=== PATIENT | female | born 1955 | race Caucasian/White ===

== ENCOUNTER 2016-05-26 15:05 | Inpatient (IN) | payer BC ==
--- NOTE | 2016-05-26 15:21 | Emergency Department Record ---
History of Present Illness - General Chief complaint: Vomiting Stated complaint: VOMITING/CRAMPS Time Seen by Provider: 05/26/16 15:19 Source: Patient Mode of Arrival: Ambulatory Limitations: No limitations - History of Present Illness Initial comments: The patient is here due to a 23 hour hx of nausea, vomiting, and abdominal cramping. She is feeling better today but is still having intermittent cramps. There has been no fever, diarrhea but a very small stool today and she is passing a small amount of gas. The patient does have a hx of multiple abdominal surgeries and has had multiple partial SBO's before and this feels the same. She has never needed surgery for an SBO in the past and has always opened up on her own. MD complaint: Abdominal pain, Nausea, Vomiting Onset/Timin -: Days(s) Description of Vomiting: Food contents, Watery Associated Abdominal Pain: Yes Radiation: None Severity scale (1-10): 3 Quality: Cramping Consistency: Constant Improves with: None Worsens with: None Context: Sick contacts Associated Symptoms: Nausea/vomiting - Related Data Home Medications Medication Instructions Recorded Confirmed Last Taken Dicyclomine HCl 20 mg PO QID 02/12/14 05/26/16 06/03/15 Calcium Carbonate [Calcium] 600 mg PO DAILY tab 03/16/15 05/26/16 Unknown Previous Rx's Medication Instructions Recorded Omeprazole 20 mg PO DAILY #30 tab. 06/06/15 Allergies Allergy/AdvReac Type Severity Reaction Status Date / Time venom-honey bee Allergy SWELLING Verified 06/03/15 13:47 [bee venom (honey bee)] (GENERAL) Travel Screening - Travel/Exposure Within Last 30 Days Have you traveled within the last 30 days?: No Review of Systems Constitutional: Denies: Chills, Fever Eyes: Denies: Eye discharge ENT: Denies: Congestion Respiratory: Denies: Cough, Dyspnea Past Medical History - SOCIAL HISTORY Smoking Status: Former smoker - RESPIRATORY Hx Respiratory Disorders: Yes Hx COPD: Yes Hx Sleep Apnea: Yes Hx of CPAP: No - CARDIOVASCULAR Hx Cardio Disorders: Yes - NEURO Hx Neuro Disorders: Yes Comment:: 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 - GI Hx GI Disorders: Yes Hx Abdominal Pain: Yes Hx Diverticulitis: Yes Hx Nausea/Vomiting: Yes Hx Obstructive Bowel: Yes Hx Wt Loss/Wt Gain: No Comment:: constipation, bowel obstruction - Hx Genitourinary Disorders: Yes Hx UTI: Yes - ENDOCRINE Hx Endocrine Disorders: No - MUSCULOSKELETAL Hx Musculoskeletal Disorders: Yes Hx Back Injury: Yes (x2 herniated disc) Hx Musculoskeletal Disease: Yes (left knee) Hx Osteoporosis: Yes Comment:: cortisone injection > 1 month ago for hip pain - PSYCH Hx Psych Problems: No - HEMATOLOGY/ONCOLOGY Hx Hematology/Oncology Disorders: No Hx Blood Transfusions: Yes Hx Blood Transfusion Reaction: No Family Medical History Any Significant Family History?: Yes Hx Cancer: Father Hx Heart Disease: Mother Physical Exam - General General Appearance: Alert, Oriented x3, Cooperative, No acute distress - Head Head exam: Atraumatic, Normocephalic, Normal inspection - Eye Eye exam: Normal appearance, PERRL - ENT Throat exam: Normal inspection. negative: Tonsillar erythema, Tonsillar exudate - Neck Neck exam: Normal inspection, Full ROM. negative: Tenderness - Respiratory Respiratory exam: Normal lung sounds bilaterally. negative: Respiratory distress - Cardiovascular Cardiovascular Exam: Regular rate, Normal rhythm, Normal heart sounds - GI/Abdominal GI/Abdominal exam: Soft, Tenderness (There is mild upper abdominal tenderness.) . negative: Distended, Rebound, Rigid - Extremities Extremities exam: Normal inspection, Full ROM, Normal capillary refill. negative: Tenderness - Back Back exam: Reports: Normal inspection, Full ROM. Denies: Muscle spasm, Rash noted, Tenderness Course Vital Signs 05/26/16 15:10 Temperature 97.3 F L Pulse Rate 90 Respiratory 20 Rate Blood Pressure 148/90 Pulse Ox 99 - Reevaluation(s) Reevaluation #1: The patient is doing better but is still having some pain and nausea. I did discuss the CT results with the patient and the need for admission and she agrees with the plan. I then did discuss the case with Dr. Camarillo and he accepts the admission. 05/26/16 16:46 Reevaluation #2: The patient is doing much better presently. She denies any significant pain and has a very soft abdomen. She is feeling much better and resting comfortably. 05/26/16 17:00 Medical Decision Making - Data Complexity MDM Data: Labs Ordered and/or Reviewed, X-Ray Ordered and/or Reviewed - Lab Data Result diagrams: 05/26/16 15:55 05/26/16 15:55 - Radiology Data Radiology results: Report reviewed (CT: Partial SBO with no perforation or pneumatosis) Disposition Disposition: Admit Clinical Impression: Small bowel obstruction Disposition: Still a Patient at [facility] Decision to Admit: Admit from ER Decision to Admit Date: 05/26/16 Decision to Admit Time: 16:48 Accepting Physician: Rabia Time Discussed w/Accepting Physician: 16:48 Condition: (1) Good Time of Disposition: 16:48
[2016-05-26] MEDS ORDERED: ONDANSETRON HCL IV 4 MG/2 ML VIAL IV ONE (15:27)
[2016-05-26] MEDS ORDERED: 0.9 % SODIUM CHLORIDE 1,000 ML BAG IV ONE (15:27)
[2016-05-26 16:07] LABS: BASO % 0.3 % (0-6); EOS % 1.3 % (0-6); GRAN % 68.3 % (47-80); HEMATOCRIT 44.2 % (35.0-47.0); HEMOGLOBIN 13.9 gm/dl (11.6-16.0); LYMPH % 20.4 % (16-45); MEAN CELL VOLUME 92.5 fl (81-97); MEAN CORPUSCULAR HEMOGLOBIN 29.1 pg (27-33); MEAN CORPUSCULAR HGB CONC 31.4 g/dl (32-36); MEAN PLATELET VOLUME 9.8 fl (7.4-10.4); MONO % 9.7 % (0-9); PLATELET COUNT 342 K/uL (130-400); RED BLOOD COUNT 4.78 M/uL (3.80-5.40); RED CELL DISTRIBUTION WIDTH 13.8 % (11.5-14.5); WHITE BLOOD COUNT W/O DIFF 6.7 K/uL (4.2-12.2)
[2016-05-26 16:16] LABS: ALBUMIN 4.3 gm/dL (3.5-5.0); ALKALINE PHOSPHATASE 96 U/L (38-126); ALT/SGPT 33 U/L (9-52); AMYLASE 37 U/L (30-110); ANION GAP 10.7 (7-16); AST/SGOT 27 U/L (14-36); BILIRUBIN,TOTAL 0.79 mg/dL (0.2-1.3); BLOOD UREA NITROGEN 22 mg/dL (7-17); CARBON DIOXIDE 30.3 mmol/L (22-30); CREATININE 0.8 mg/dL (0.52-1.04); EST GLOMERULAR FILTRATION RATE > 60 ml/min; GLUCOSE,RANDOM 86 mg/dL (70-110); TOTAL PROTEIN 7.3 gm/dL (6.3-8.2)
[2016-05-26] MEDS ORDERED: HYDROMORPHONE HCL 1 MG/ML CPJ IVP ONE (16:44)
[2016-05-26] MEDS ORDERED: 0.9 % SODIUM CHLORIDE 1000ML 1,000 ML IV PRN (17:40)
[2016-05-26] MEDS ORDERED: ONDANSETRON HCL IV 4 MG/2 ML VIAL IVP PRN (17:40)
[2016-05-26 19:29] LABS: LIPASE 23 U/L (23-300)
[2016-05-26] MEDS: PANTOPRAZOLE SODIUM IV 40 MG VIAL IVP SCH (19:47)
[2016-05-26] MEDS: HYDROMORPHONE HCL 1 MG/ML CPJ IVP PRN (22:11)
[2016-05-27 06:49] LABS: BASO % 0.4 % (0-6); EOS % 2.8 % (0-6); HEMATOCRIT 39.6 % (35.0-47.0); HEMOGLOBIN 12.2 gm/dl (11.6-16.0); LYMPH % 26.3 % (16-45); MEAN CELL VOLUME 94.5 fl (81-97); MEAN CORPUSCULAR HEMOGLOBIN 29.1 pg (27-33); MEAN CORPUSCULAR HGB CONC 30.8 g/dl (32-36); MEAN PLATELET VOLUME 10.1 fl (7.4-10.4); MONO % 9.5 % (0-9); PLATELET COUNT 293 K/uL (130-400); RED BLOOD COUNT 4.19 M/uL (3.80-5.40); RED CELL DISTRIBUTION WIDTH 13.5 % (11.5-14.5); WHITE BLOOD COUNT W/O DIFF 5.4 K/uL (4.2-12.2)
[2016-05-27 07:28] LABS: BLOOD UREA NITROGEN 18 mg/dL (7-17); CREATININE 0.6 mg/dL (0.52-1.04); EST GLOMERULAR FILTRATION RATE > 60 ml/min; GLUCOSE,RANDOM 63 mg/dL (70-110)
[2016-05-27 07:29] LABS: ANION GAP 9.4 (7-16); CARBON DIOXIDE 24.6 mmol/L (22-30)
--- NOTE | 2016-05-27 08:20 | CT SCAN REPORT ---
EXAM: CT OF THE ABDOMEN AND PELVIS WITHOUT CONTRAST HISTORY: VOMITING SINCE 5:00 P.M. YESTERDAY. TECHNIQUE: Helical CT examination of the abdomen and pelvis was performed without oral or intravenous contrast administration. Lack of oral and IV contrast utilization limits evaluation of the bowel and solid viscera respectively. Comparison: CT of the abdomen and pelvis without contrast dated 06/03/15. FINDINGS: Minimal linear scarring versus atelectasis in each lung base. On the first image obtained there is a possible 3 mm nodule in the posterior left lung base. This was not included on prior examinations. The visualized lung bases are otherwise clear. No pleural or pericardial effusion is seen. A small hiatal hernia is present. The heart is not grossly enlarged. Lack of IV contrast utilization limits evaluation of the solid viscera and bowel wall. No new suspicious focal abnormality is demonstrated within the liver, spleen, pancreas, adrenal glands, nor kidneys. The gallbladder is surgically absent. No gross biliary ductal dilatation is seen. There is mild atherosclerosis without aneurysmal dilatation of the abdominal aorta nor iliac arteries. No intraabdominal nor retroperitoneal lymphadenopathy is seen. No new pelvic mass, lymphadenopathy, or free pelvic fluid is demonstrated. There is diffuse colonic diverticulosis without evidence of diverticulitis. A rectosigmoid anastomosis is visualized. There are several loops of mildly dilated proximal to mid small bowel with sharp zone of transition demonstrated in the midline mid to lower abdominal cavity. There are associated air fluid levels without gross wall thickening nor pneumatosis intestinalis. This finding is consistent with proximal to mid small bowel obstruction. No free intraperitoneal air. No new lytic or blastic bone lesion. IMPRESSION: 1. FINDINGS CONSISTENT WITH MID SMALL BOWEL OBSTRUCTION WITH SHARP ZONE TRANSITION IN THE MIDLINE MID TO LOWER ABDOMINAL CAVITY. NO ASSOCIATED WALL THICKENING, PNEUMATOSIS INTESTINALIS, NOR FREE INTRAPERITONEAL AIR. 2. STATUS POST CHOLECYSTECTOMY. 3. RECTOSIGMOID ANASTOMOSIS REDEMONSTRATED APPEARING UNCOMPLICATED. COLONIC DIVERTICULOSIS WITHOUT EVIDENCE OF DIVERTICULITIS. 4. SMALL HIATAL HERNIA. 5. POSSIBLE 3 MM NODULE IN THE POSTERIOR LEFT LUNG BASE DEMONSTRATED ON THE VERY FIRST IMAGE OBTAINED. FURTHER EVALUATION WITH FOLLOW-UP CT CHEST EXAMINATION MAY BE OF BENEFIT. JOB NUMBER: [id number] [facility]
[2016-05-27] MEDS: ENOXAPARIN 40 MG/0.4 ML SYR SQ SCH (09:14)
[2016-05-27] MEDS: HYDROMORPHONE HCL 1 MG/ML CPJ IVP PRN (12:33)
[2016-05-27] MEDS: PANTOPRAZOLE SODIUM IV 40 MG VIAL IVP SCH (17:22)
[2016-05-28] MEDS: ENOXAPARIN 40 MG/0.4 ML SYR SQ SCH (09:25)
--- NOTE | 2016-05-28 10:03 | Discharge Note ---
VTE H&P Assessment - Risk for VTE Risk for VTE: Yes Risk Level: Moderate Risk Assessment Date: 05/26/16 Risk Assessment Time: 06:00 VTE Orders Placed or Will Be Placed: Yes VTE Reason for No Prophylaxis: Not Indicated Discharge Medications - Discharge Medications Prescriptions: Hydrocodone/Acetaminophen [[place] 5mg/325mg] 1 tab PO Q6H PRN #10 tab PRN Reason: Pain - General Home Medications: Ambulatory Orders Dicyclomine HCl 20 mg PO QID 02/12/14 [Last Taken 06/03/15] Calcium Carbonate [Calcium] 600 mg PO DAILY tab 03/16/15 [Last Taken Unknown] Omeprazole 20 mg PO DAILY #30 tab.dr 06/06/15 [Last Taken Unknown] Hydrocodone/Acetaminophen [[place] 5mg/325mg] 1 tab PO Q6H PRN #10 tab 05/28/16 [ Last Taken Unknown] Discharge Note - Date Date of Discharge Note: 05/28/16 Condition: (1) Good Additional Instructions: follow up with Dr. Camarillo on thursdayjune 02 in the AM please set up an appointment with office bland diet Prescriptions: Hydrocodone/Acetaminophen [[place] 5mg/325mg] 1 tab PO Q6H PRN #10 tab PRN Reason: Pain - General Referrals: Ryan Camarillo D.O. [Primary Care Provider] - Forms: Patient Portal Access
--- NOTE | 2016-05-28 10:10 | History and Physical Report ---
DATE OF EVALUATION: 05/27/2016 DATE OF ADMISSION: 05/26/2016 CHIEF COMPLAINT: Abdominal pain. HISTORY OF THE PRESENT ILLNESS: This 60-year-old female presented to the ER with 23 hours of nausea, vomiting, and abdominal cramping. She had no fever or diarrhea. She had a very small bowel movement today. She passed a small amount of gas. The patient has a history of multiple abdominal surgeries with multiple partial bowel SBOs before, and at this time, feels the same as when she had a small-bowel obstruction before. She has never needed surgery for the SBO in the past and has always opened up on her own. The pain is located in the epigastric area of the abdomen. She had a colon resection by Dr. Wick in 2011 for diverticulitis, cholecystectomy, tubal repair due to adhesions, tonsillectomy, and a fissure of the rectum repaired. PAST MEDICAL HISTORY: Encephalitis x2 at 8 years of age and 31 years of age. She has a history of heart murmur, chronic obstructive pulmonary disease. She stopped smoking in 1979. She has osteoarthritis of her hips. PAST SURGICAL HISTORY: Tonsillectomy. Bowel resection due to diverticulitis in 2011. Cholecystectomy. Fissure repair and tubal repair due to adhesions. MEDICATIONS ON ADMISSION: She takes calcium with vitamin D 600 mg 1 daily, omeprazole 20 mg daily, Bentyl 20 mg q.i.d. p.r.n. She also uses Advair 250/50 one puff b.i.d., albuterol 2 puffs every 4 hours p.r.n., and lactobacillus 1 p.r.n. MiraLAX p.r.n. constipation. ALLERGIES: Venom in honey and bees. FAMILY PSYCHOSOCIAL HISTORY: Quit smoking in 1979. Former smoker. No alcohol or drug use. FAMILY HISTORY: Father had cancer and mother had heart disease. REVIEW OF SYSTEMS: HEENT: No upper respiratory infection symptoms, cough, cold, or congestion. Cardiovascular: No chest pain, palpitations, or arrhythmias. Respiratory: No shortness of breath, cough, cold or congestion. Gastrointestinal: See Chief Complaint. She had nausea, vomiting, and abdominal pain. She had no blood in her vomit or blood in stool. She did have a small stool yesterday. Genitourinary: No dysuria, hematuria, frequency, or burning on urination. Musculoskeletal: Some diffuse arthritis, but able to move her arms and legs without any problems. Neurologic: No CVA, paralysis, or paresthesias. Gynecologic: No new lumps in breasts or abdominal vaginal bleeding. Endocrine: No diabetes or thyroid disease. Integument: No rash, ulcers, changes in moles, or yellow skin. PHYSICAL EXAMINATION: VITAL SIGNS: Height is 5'4". Weight is 164 pounds. Temperature was 97.7. Pulse was 96. Blood pressure 136/74. Respiratory rate is 16. Pulse ox is 93% on room air. HEENT: Pupils equal, round, and reactive to light and accommodation. Extraocular muscles intact. Throat is clear. Nose is clear. Tympanic membranes yuen. NECK: Supple. No jugular venous distention. No hepatojugular reflux. No carotid bruits. Thyroid is smooth. CARDIOVASCULAR: Regular rate and rhythm without murmurs, clicks, rubs, or gallops. RESPIRATORY: Clear to auscultation and percussion. ABDOMEN: Tender in the epigastric area on palpation. No rebound or rigidity. Bowel sounds are hypoactive. EXTREMITIES: No pitting edema. No cyanosis or clubbing. Full range of motion. Peripheral pulses good. BREASTS: Deferred. GYNECOLOGIC: Deferred. RECTAL: Deferred. NEUROLOGIC: Cranial nerves II-XII intact. No gross deficits. Sensation normal. Strength normal. Deep tendon reflexes equal bilaterally. Babinski is negative. MENTAL STATUS: Alert and oriented x3. IMPRESSION: 1. Partial small-bowel obstruction. 2. Abdominal pain. 3. Vomiting. PLAN: IV fluids. Cautiously start her diet back up with clear liquids and further evaluation. Pain control as needed. DO RAFI Haines
== END 2016-05-28 13:05 | disposition home or self-care (01) | DRG 390 ==
LOC: ER 15:05 → MEDSURG 17:16
PROVIDERS: ADMIT Emergency Medicine; ATTEND Emergency Medicine
DX: K56.69 Other intestinal obstruction (principal); R11.10 Vomiting, unspecified; J44.9 Chronic obstructive pulmonary disease, unspecified
CPT/HCPCS: 74176; 80048; 80076; 82150; 83690; 85025; 96361; 96374; 96375; 99223; 99239; 99285; C9113; J1170; J1650; J2405; J7030

== ENCOUNTER 2016-06-23 21:50 | Inpatient (IN) | payer BC ==
[2016-06-23 22:01] LABS: URINE APPEARANCE CLEAR; URINE BILIRUBIN SMALL (NEGATIVE); URINE BLOOD TRACE-I (NEGATIVE); URINE COLOR YELLOW; URINE GLUCOSE (UA) NEGATIVE (NEGATIVE); URINE KETONE 15 mg/dL (NEGATIVE); URINE LEUKOCYTE ESTERASE TRACE (NEGATIVE); URINE NITRITE POSITIVE (NEGATIVE); URINE PROTEIN TRACE (NEGATIVE); URINE UROBILINOGEN 0.2 E.U./dL (0.20 - 1.00)
--- NOTE | 2016-06-23 22:08 | Emergency Department Record ---
History of Present Illness - General Chief Complaint: Abdominal Pain Stated Complaint: ABD PAIN Time Seen by Provider: 06/23/16 22:06 Source: Patient Mode of Arrival: Ambulatory Limitations: No limitations - History of Present Illness Initial Comments: The patient is here due to a 2 day hx of upper AP. The pain is sharp and crampy. She has had nausea with vomiting but no diarrhea and she did have a small BM earlier today. The patient has a hx of partial SBO's just like this and was just in the hospital a month ago for the same thing. MD Complaint: Abdominal pain Onset/Timin -: Days(s) Location: LUQ, RUQ Radiation: None Quality: Cramping Consistency: Constant Improves With: Bowel movement, Vomiting Worsens With: Nothing Associated Symptoms: Nausea, Vomiting - Related Data Hx Age of Menopause: 42 Home Medications Medication Instructions Recorded Confirmed Last Taken Dicyclomine HCl 20 mg PO QID 02/12/14 06/23/16 06/22/16 Calcium Carbonate [Calcium] 600 mg PO DAILY tab 03/16/15 06/23/16 06/22/16 Albuterol Sulfate [Proair Hfa] 1 - 2 inh IH Q6HR PRN 06/23/16 06/23/16 Unknown Cholecalciferol (Vitamin D3) 5,000 unit PO DAILY 06/23/16 06/23/16 06/23/16 [Vitamin D3] Tiotropium [place] [Spiriva] 1 inh IH DAILY 06/23/16 06/23/16 06/23/16 Previous Rx's Medication Instructions Recorded Omeprazole 20 mg PO DAILY #30 tab. 06/06/15 Hydrocodone/Acetaminophen [[place] 1 tab PO Q6H PRN #10 tab 05/28/16 5mg/325mg] Allergies Allergy/AdvReac Type Severity Reaction Status Date / Time venom-honey bee Allergy SWELLING Verified 06/03/15 13:47 [bee venom (honey bee)] (GENERAL) Travel Screening - Travel/Exposure Within Last 30 Days Have you traveled within the last 30 days?: No - Travel Symptoms Symptom Screening: None Review of Systems Constitutional: Denies: Chills, Fever Eyes: Denies: Eye discharge ENT: Denies: Congestion Respiratory: Denies: Cough, Dyspnea Cardiovascular: Denies: Arrhythmia, Chest pain Endocrine: Denies: Fatigue Gastrointestinal: Reports: Abdominal pain, Nausea, Vomiting. 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 - GI Hx GI Disorders: Yes Hx Abdominal Pain: Yes Hx Diverticulitis: Yes Hx Nausea/Vomiting: Yes Hx Obstructive Bowel: Yes Hx Wt Loss/Wt Gain: No Comment:: constipation, bowel obstruction - Hx Genitourinary Disorders: Yes Hx UTI: Yes - ENDOCRINE Hx Endocrine Disorders: No - MUSCULOSKELETAL Hx Musculoskeletal Disorders: Yes Hx Back Injury: Yes (x2 herniated disc) Hx Musculoskeletal Disease: Yes (left knee) Hx Osteoporosis: Yes Comment:: cortisone injection > 1 month ago for hip pain - PSYCH Hx Psych Problems: No - HEMATOLOGY/ONCOLOGY Hx Hematology/Oncology Disorders: No Hx Blood Transfusions: Yes Hx Blood Transfusion Reaction: No Family Medical History Any Significant Family History?: Yes Hx Cancer: Father Hx Heart Disease: Mother Physical Exam - General General Appearance: Alert, Oriented x3, Cooperative, No acute distress - Head Head exam: Atraumatic, Normocephalic, Normal inspection - Eye Eye exam: Normal appearance, PERRL - ENT ENT exam: Normal exam, Mucous membranes moist, Normal external ear exam, Normal orophraynx Throat exam: Normal inspection. negative: Tonsillar erythema, Tonsillar exudate - Neck Neck exam: Normal inspection, Full ROM. negative: Tenderness - Respiratory Respiratory exam: Normal lung sounds bilaterally. negative: Respiratory distress - Cardiovascular Cardiovascular Exam: Regular rate, Normal rhythm, Normal heart sounds - GI/Abdominal GI/Abdominal exam: Soft, Tenderness (There is diffuse tenderness in all 4 quads. ). negative: Rebound, Rigid - Extremities Extremities exam: Normal inspection, Full ROM, Normal capillary refill. negative: Tenderness - Back Back exam: Reports: Normal inspection - Neurological Neurological exam: Alert, Normal gait. negative: Abnormal gait, Motor sensory deficit - Psychiatric Psychiatric exam: negative: Anxious, Depressed - Skin Skin exam: negative: Rash Course Vital Signs 06/23/16 21:56 Temperature 97.6 F Pulse Rate [ 101 H Pulse Ox Probe] Respiratory 28 H Rate Blood Pressure 130/74 [Left Arm] Pulse Ox 95 - Reevaluation(s) Reevaluation #1: The patient is doing well. She is feeling better with the pain medicines. I did discuss the issues with the SBO with her and the need for admission. 06/23/16 23:35 Medical Decision Making - Data Complexity MDM Data: Labs Ordered and/or Reviewed, X-Ray Ordered and/or Reviewed - Lab Data Result diagrams: 06/23/16 22:38 06/23/16 22:38 Lab Results 06/23/16 Range/Units 22:00 Urine Color Yellow Urine Appearance Clear Urine pH 5.5 (5.0-8.0) Ur Specific [place] >= 1.030 (1.002-1.030) Urine Protein Trace H (NEGATIVE) Urine Glucose (UA) Negative (NEGATIVE) Urine Ketones 15 mg/dl H (NEGATIVE) Urine Blood Trace-i (NEGATIVE) Urine Nitrite Positive H (NEGATIVE) Urine Bilirubin Small H (NEGATIVE) Urine Urobilinogen 0.2 (0.20 - 1.00) E.U./dL Ur Leukocyte Esterase Trace H (NEGATIVE) - Radiology Data Radiology results: Report reviewed (CT: Mid SBO with transition point in the anterior central low abdomen.) Disposition Disposition: Admit Clinical Impression: Small bowel obstruction Disposition: Still a Patient at [facility] Decision to Admit: Admit from ER Decision to Admit Date: 06/23/16 Decision to Admit Time: 23:36 Accepting Physician: Rabia Time Discussed w/Accepting Physician: 23:36 Condition: (2) Stable Forms: Patient Portal Access Time of Disposition: 23:36
[2016-06-23 22:10] LABS: URINE BACTERIA FEW; URINE EPITHELIAL CELLS 0 - 2 (FEW); URINE RBC 0 - 2 (NONE SEEN)
[2016-06-23] MEDS ORDERED: 0.9 % SODIUM CHLORIDE 1,000 ML BAG IV ONE (22:12)
[2016-06-23] MEDS ORDERED: ONDANSETRON HCL IV 4 MG/2 ML VIAL IV ONE (22:12)
[2016-06-23] MEDS ORDERED: HYDROMORPHONE HCL 1 MG/ML CPJ IM ONE (22:12)
[2016-06-23] MEDS ORDERED: HYDROMORPHONE HCL 1 MG/ML CPJ IVP ONE (22:41)
[2016-06-23 22:45] LABS: BASO % 0.2 % (0-6); EOS % 1.1 % (0-6); GRAN % 78.4 % (47-80); HEMATOCRIT 43.1 % (35.0-47.0); HEMOGLOBIN 13.6 gm/dl (11.6-16.0); LYMPH % 12.9 % (16-45); MEAN CELL VOLUME 91.7 fl (81-97); MEAN CORPUSCULAR HEMOGLOBIN 28.9 pg (27-33); MEAN CORPUSCULAR HGB CONC 31.6 g/dl (32-36); MEAN PLATELET VOLUME 10.2 fl (7.4-10.4); MONO % 7.4 % (0-9); PLATELET COUNT 269 K/uL (130-400); RED CELL DISTRIBUTION WIDTH 13.7 % (11.5-14.5); WHITE BLOOD COUNT W/O DIFF 9.2 K/uL (4.2-12.2)
[2016-06-23 22:56] LABS: ALBUMIN 4.7 gm/dL (3.5-5.0); ALKALINE PHOSPHATASE 87 U/L (38-126); ALT/SGPT 30 U/L (9-52); ANION GAP 14.1 (7-16); AST/SGOT 21 U/L (14-36); BLOOD UREA NITROGEN 21 mg/dL (7-17); CARBON DIOXIDE 25.9 mmol/L (22-30); CREATININE 0.7 mg/dL (0.52-1.04); EST GLOMERULAR FILTRATION RATE > 60 ml/min; GLUCOSE,RANDOM 104 mg/dL (70-110); LIPASE 40 U/L (23-300); TOTAL PROTEIN 7.5 gm/dL (6.3-8.2)
[2016-06-23] MEDS ORDERED: 0.9 % SODIUM CHLORIDE 1000ML 1,000 ML IV PRN (23:37)
[2016-06-23] MEDS ORDERED: ONDANSETRON HCL IV 4 MG/2 ML VIAL IVP PRN (23:37)
[2016-06-23] MEDS ORDERED: HYDROMORPHONE HCL 1 MG/ML CPJ IVP PRN (23:37)
[2016-06-23] MEDS ORDERED: ALBUTEROL HFA 8 GM INHALER INH PRN ×2 (23:39→23:53)
[2016-06-24] MEDS: HYDROMORPHONE HCL 1 MG/ML CPJ IVP PRN ×3 (04:33→18:38)
[2016-06-24] MEDS: TIOTROPIUM BROMIDE 5 CAPSULES INH SCH (07:14)
--- NOTE | 2016-06-24 09:52 | CT SCAN REPORT ---
EXAM: ABDOMEN AND PELVIS CT WITHOUT CONTRAST HISTORY: TWO DAYS RIGHT UPPER QUADRANT AND LEFT UPPER QUADRANT ABDOMINAL PAIN. TECHNIQUE: Contiguous axial images from the lung bases to the symphysis pubis were obtained without IV contrast. Comparison: Abdomen and pelvis CT 06/03/15. FINDINGS: The lung bases are clear. Evaluation of the solid abdominal visceral organs is compromised due to lack of IV contrast. The liver is not enlarged. Tiny 3 mm cyst at the hepatic dome anteriorly. The spleen is homogeneous. The kidneys reveal no calculi, hydronephrosis or contour deforming mass. Thickening at lateral limb left adrenal gland likely due to hyperplasia, unchanged. Normal right adrenal gland. The pancreas is normal. The gallbladder is absent. There is dilated jejunum in the left upper quadrant and left lower quadrant containing fluid and measuring up to 4.4 cm in diameter. Transition point best seen on coronal images 46 through 50 in the left mid abdomen. No associated mass. The appendix is not seen although there are no pericecal inflammatory changes. Moderate fecal material throughout the colon with moderate colonic diverticulosis. No diverticulitis. Suture material at the rectum. Mild aortic calcification. No free intraperitoneal fluid or adenopathy. The osseous structures reveal no lytic or blastic lesion. IMPRESSION: 1. LITTLE CHANGE FROM PRIOR STUDY. PARTIAL SMALL BOWEL OBSTRUCTION WITH TRANSITION POINT LEFT MID ABDOMEN. NO ASSOCIATED MASS. 2. MODERATE COLONIC DIVERTICULOSIS WITH NO DIVERTICULITIS. 3. OTHER INCIDENTAL FINDINGS ABOVE. JOB NUMBER: [id number] MTDD
[2016-06-24] MEDS ORDERED: PANTOPRAZOLE SODIUM IV 40 MG VIAL IV SCH (10:00)
[2016-06-24] MEDS: ONDANSETRON HCL IV 4 MG/2 ML VIAL IVP PRN (10:05)
[2016-06-24] MEDS: PANTOPRAZOLE SODIUM IV 40 MG VIAL IV SCH (10:11)
[2016-06-24] MEDS: 0.9 % SODIUM CHLORIDE 1000ML 1,000 ML IV PRN ×2 (11:38→22:08)
[2016-06-24] MEDS: ENOXAPARIN 40 MG/0.4 ML SYR SQ SCH (14:09)
[2016-06-25] MEDS: HYDROMORPHONE HCL 1 MG/ML CPJ IVP PRN ×3 (00:43→16:06)
[2016-06-25] MEDS: TIOTROPIUM BROMIDE 5 CAPSULES INH SCH (06:09)
[2016-06-25] MEDS: ONDANSETRON HCL IV 4 MG/2 ML VIAL IVP PRN (07:30)
[2016-06-25] MEDS ORDERED: AL HYDROX/MAG HYDROX 30ML UD PO PRN (07:35)
--- NOTE | 2016-06-25 07:46 | RADIOLOGY REPORT ---
EXAM: ACUTE ABDOMEN SERIES HISTORY: PARTIAL SMALL BOWEL OBSTRUCTION, UPPER ABDOMINAL PAIN. TECHNIQUE: Frontal view of the chest and two views of the abdomen were obtained. Comparison: Abdominal series 03/07/14. Abdomen CT 06/23/16. FINDINGS: The lungs are clear. The cardiac silhouette, diaphragm, and osseous structures are unremarkable. No free air. Small amount of gas throughout nondistended small and large bowel. Abundant fecal material in the distal half of the colon and rectum. No suspicious calcification. IMPRESSION: 1. NEGATIVE CHEST EXAMINATION. 2. NONOBSTRUCTED BOWEL GAS PATTERN WITH NO FREE AIR. 3. CONSTIPATION. JOB NUMBER: [id number] MTDD
[2016-06-25] MEDS: ENOXAPARIN 40 MG/0.4 ML SYR SQ SCH (09:35)
[2016-06-25] MEDS: PANTOPRAZOLE SODIUM IV 40 MG VIAL IV SCH (09:35)
[2016-06-25] MEDS: 0.9 % SODIUM CHLORIDE 1000ML 1,000 ML IV PRN (09:38)
--- NOTE | 2016-06-25 09:50 | History and Physical Report ---
DATE OF ADMISSION: 06/24/2016 at 12:51 p.m. CHIEF COMPLAINT: Abdominal pain. HISTORY OF CHIEF COMPLAINT: This 60-year-old female presented to the Emergency Department with 2 days of epigastric abdominal pain, sharp and crampy. She has nausea and vomiting. She had vomiting 1 time Thursday night, dry heaves after that. She had 1 small stool on Thursday. She came in the hospital yesterday on Thursday through the Emergency Department, seen by Dr. Schafer, admitted to the hospital for partial small bowel obstruction. The patient had surgery by Dr. Wick for colon resection in 2011 for diverticulitis and she has had about 8 hospitalizations since that time for the same problem. She also had a fissure of rectum repaired somewhere along the line. 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 She has a history of heart murmur, COPD. She stopped smoking in 1979. She has osteoarthritis of the hips. SURGICAL HISTORY: Tonsillectomy, bowel resection due to diverticulitis in 2011, cholecystectomy, and fissure repair, tubal repair due to adhesions. CURRENT MEDICATIONS: 1. Spiriva 1 inhalation daily. 2. Vitamin D 5000 units daily. 3. ProAir. 4. Albuterol 1-2 puffs q.6 hours p.r.n. 5. Omeprazole 20 mg daily. 6. Bentyl 20 mg q.i.d. 7. Calcium with vitamin D 600 mg daily. ALLERGIES: Venom and honey bee/honey allergy. SOCIAL HISTORY: She quit smoking in 1979, former smoker. No alcohol or drug use. FAMILY HISTORY: Her father had cancer. Mother had heart disease. SYSTEMS REVIEW: HEENT: No upper respiratory infection symptoms, cough, cold or congestion. Cardiovascular: No chest pain, palpitation, arrhythmia. Respiratory: No shortness of breath, cough, cold or congestion. Gastrointestinal: See chief complaint. She has nausea, vomiting and abdominal pain. She has no blood in her vomit or blood in the stool that she saw on Thursday, the day of admission. She did have a small stool at that time. Musculoskeletal: Some diffuse arthritis but able to move her arms and legs without problems. Neurologic: No CVA, paralysis or paresthesias. Gynecologic. No new lumps in her breast or abnormal vaginal bleeding. Endocrine: No diabetes or thyroid disease. Integument: No rash, ulcer changes or yellow skin. PHYSICAL EXAMINATION: VITAL SIGNS: Height is 5 feet 4 inches. Weight is 162 pounds. Temperature is 97.7. Pulse is 75. Blood pressure 113/63. Respiratory rate is 16. Pulse ox is 96% on room air. HEENT: Pupils are equal, round and reactive to light and accommodation. Extraocular muscles are intact. Throat is clear. Nose is clear. Tympanic membranes are yuen. NECK: Supple, no jugular venous distention, no hepatojugular reflux, no carotid bruits. Thyroid is smooth. LUNGS: Clear to auscultation and percussion. HEART: Regular rate and rhythm without murmurs, clicks, rubs, or gallops. ABDOMEN: Tender in the epigastric area and in the upper abdomen, left and right. No rebound or rigidity. Bowel sounds are hypoactive. EXTREMITIES: No pitting edema, no cyanosis, no clubbing. Full range of motion. Peripheral pulses are good. No pain in her legs on palpation of the legs. BREASTS, GYNECOLOGICAL AND RECTAL: Deferred. NEUROLOGIC: Cranial nerves II-XII intact. No gross decreased sensation or arm strength. Normal deep tendon reflexes, equal bilaterally. Babinski is negative. MENTAL STATUS: Alert and oriented x 3. IMPRESSION: 1. Partial small bowel obstruction. 2. Abdominal pain. 3. Vomiting. PLAN: IV fluids, cautious. She will restart her diet as she can start to tolerate clear liquids, and further evaluation and pain control as needed. INPATIENT CERTIFICATION: Admit to inpatient care. Based on my medical assessment after consideration of his risk factors, age, comorbidities, patient' s present symptoms in Acute, I expect that this patient will remain in the hospital greater than or equal to 2 midnights on the service and he will warrant inpatient care because of a partial small bowel obstruction. ESTIMATED LENGTH OF CARE: Three days. The patient may reasonably be expected to be discharged or transferred to a hospital within 96 hours after admission to [facility]. SERVICES NEEDED: IV fluid, pain control, and further evaluation. I certify that my determination is in accordance with my understanding of Medicare requirements for reasonable and necessary inpatient services. RAFI
[2016-06-25] MEDS ORDERED: DICYCLOMINE HCL 10 MG CAPSULE PO PRN (16:13)
[2016-06-25] MEDS ORDERED: ACETAMINOPHEN 325 MG TAB PO PRN (16:13)
--- NOTE | 2016-06-25 17:31 | Discharge Note ---
VTE H&P Assessment - Risk for VTE Risk for VTE: Yes Risk Level: Moderate Risk Assessment Date: 06/24/16 Risk Assessment Time: 09:00 VTE Orders Placed or Will Be Placed: Yes Discharge Medications - Discharge Medications Home Medications: Ambulatory Orders Dicyclomine HCl 20 mg PO QID 02/12/14 [Last Taken 06/22/16] Calcium Carbonate [Calcium] 600 mg PO DAILY tab 03/16/15 [Last Taken 06/22/16] Omeprazole 20 mg PO DAILY #30 tab.dr 06/06/15 [Last Taken 06/22/16] Hydrocodone/Acetaminophen [[place] 5mg/325mg] 1 tab PO Q6H PRN #10 tab 05/28/16 [ Last Taken 06/22/16] Albuterol Sulfate [Proair Hfa] 1 - 2 inh IH Q6HR PRN 06/23/16 [Last Taken Unknown] Cholecalciferol (Vitamin D3) [Vitamin D3] 5,000 unit PO DAILY 06/23/16 [Last Taken 06/23/16] Tiotropium [place] [Spiriva] 1 inh IH DAILY 06/23/16 [Last Taken 06/23/16] Discharge Note - Date Date of Discharge Note: 06/25/16 Disposition: Home, Self-Care Condition: (2) Stable Additional Instructions: follow up with Dr. Camarillo at 4pm tomorrow Forms: Patient Portal Access
--- NOTE | 2016-06-27 10:10 | Discharge Summary ---
DISCHARGE DIAGNOSES: 1. Partial small bowel obstruction, resolving. 2. Abdominal pain. 3. Chronic obstructive pulmonary disease. ATTENDING PHYSICIAN: Ryan Camarillo DO REASON FOR HOSPITALIZATION: A 60-year-old with abdominal pain. HISTORY OF PRESENT ILLNESS: This 60-year-old presented to the emergency department with 2 days of epigastric abdominal pain, sharp and crampy. She had nausea and vomiting. She had vomited one time on Thursday, dry heaves after that. She had one small stool on Thursday. She came to the hospital yesterday on Thursday. She was seen by Dr. Schafer, admitted to the hospital for a partial small bowel obstruction. She had surgery by Dr. Wick 2011 for diverticulitis and had 8 hospitalizations since that time for the same problem. SIGNIFICANT FINDINGS: The CT scan showed about the same as the previous CT scan, so this is a chronic finding that she has a little narrowing in part of her intestines. She had repeat acute abdominal series, which is improved and showing no signs of obstruction but there are signs of constipation. Laboratory showing WBC 9200, hemoglobin 13.6. The rest of the labs unremarkable. Sodium 133, BUN 21, creatinine 0.7. UA is negative. THERAPY: She was given IV fluids, pain control, and finally her diet was advanced to a soft diet. She was on n.p.o., clear liquids, and soft. CONDITION ON DISCHARGE: Improved. Still some cramping but using Bentyl and Tylenol, which seem to be relieving the pain. DISCHARGE INSTRUCTIONS: Follow up with Dr. Camarillo tomorrow at 4 p.m. Continue her home medications and drink plenty of fluids. Ryan Camarillo DO [facility]
== END 2016-06-25 18:15 | disposition home or self-care (01) | DRG 390 ==
LOC: ER 21:50 → MEDSURG 06-24 00:14
PROVIDERS: ADMIT Emergency Medicine; ATTEND Emergency Medicine
DX: K56.60 Unspecified intestinal obstruction (principal); J44.9 Chronic obstructive pulmonary disease, unspecified; R11.2 Nausea with vomiting, unspecified
CPT/HCPCS: 74022; 74176; 80048; 80076; 81001; 83690; 85025; 96361; 96374; 96375; 99223; 99233; 99239; 99285; C9113; J1170; J1650; J2405; J7030

== ENCOUNTER 2016-11-13 06:28 | Observation (INO) | payer BC ==
[2016-11-13 06:41] LABS: BASO % 0.1 % (0-6); EOS % 0.7 % (0-6); HEMATOCRIT 43.2 % (35.0-47.0); HEMOGLOBIN 14.3 gm/dl (11.6-16.0); LYMPH % 11.7 % (16-45); MEAN CELL VOLUME 89.4 fl (81-97); MEAN CORPUSCULAR HEMOGLOBIN 29.6 pg (27-33); MEAN CORPUSCULAR HGB CONC 33.1 g/dl (32-36); MEAN PLATELET VOLUME 10.2 fl (7.4-10.4); MONO % 9.5 % (0-9); PLATELET COUNT 294 K/uL (130-400); RED BLOOD COUNT 4.83 M/uL (3.80-5.40); RED CELL DISTRIBUTION WIDTH 13.4 % (11.5-14.5); WHITE BLOOD COUNT W/O DIFF 7.3 K/uL (4.2-12.2)
[2016-11-13] MEDS ORDERED: ONDANSETRON HCL IV 4 MG/2 ML VIAL IVP ONE ×2 (06:43→06:48)
[2016-11-13] MEDS ORDERED: 0.9 % SODIUM CHLORIDE 1,000 ML BAG IV ONE (06:43)
[2016-11-13] MEDS ORDERED: MORPHINE SULFATE 5 MG/ML PFS IVP ONE (06:48)
--- NOTE | 2016-11-13 06:54 | Emergency Department Record ---
History of Present Illness - General Chief Complaint: Abdominal Pain Stated Complaint: ABD PAIN Time Seen by Provider: 11/13/16 06:47 Source: Patient Mode of Arrival: Ambulatory Limitations: No limitations - History of Present Illness Initial Comments: 60 yo female presents to ED with a CC of abdominal pain radiating from the RLQ to the epigastric region that began yesterday afternoon. Patient reports nausea and vomiting symptoms as well. Patient denies fevers, chills, or recent illness. Patient does report similar symptoms related to "partial small bowel obstructions" previously, states these result from previous surgery for diverticulitis. Patient denies flank pain or urinary symptoms, reports that her last bowel movement was yesterday. MD Complaint: Abdominal pain Onset/Timin -: Hour(s) Location: RLQ Radiation: Epigastric Severity: Moderate Quality: Aching, Dull Consistency: Intermittent, Getting worse Improves With: Vomiting Worsens With: Nothing Associated Symptoms: Diarrhea, Nausea, Vomiting - Related Data LMP (females 10-50): other Patient : No Hx Age of Menopause: 42 Home Medications Medication Instructions Recorded Confirmed Last Taken Gluc [place]enc[place]/Chondro Cuenc[place] A/Vit C/Mn 1 each PO DAILY 11/13/16 11/13/16 Unknown [Glucosamine-Chondroitin Cap] Previous Rx's Medication Instructions Recorded Omeprazole 20 mg PO DAILY #30 tab. 06/06/15 Allergies Allergy/AdvReac Type Severity Reaction Status Date / Time venom-honey bee Allergy SWELLING Unverified 09/30/16 18:31 (GENERAL) Travel Screening - Travel/Exposure Within Last 30 Days Have you traveled within the last 30 days?: No - Travel/Exposure Within Last Year Have you traveled outside the [place] in the last year?: No - Additonal Travel Details Have you been exposed to anyone with a communicable illness?: No - Travel Symptoms Symptom Screening: None Review of Systems Constitutional: Denies: Chills, Fever, Malaise, Night sweats Eyes: Denies: Eye discharge, Eye pain ENT: Denies: Congestion, Ear pain, Epistaxis Respiratory: Denies: Cough, Dyspnea Cardiovascular: Denies: Chest pain, Dyspnea on exertion Endocrine: Denies: Fatigue, Heat or cold intolerance Gastrointestinal: Reports: Abdominal pain, Nausea, Vomiting Genitourinary: Denies: Incontinence, Retention Musculoskeletal: Denies: Arthralgia, Back pain, Gout, Joint swelling Skin: Denies: Bruising, Change in color Neurological: Denies: Abnormal gait, Confusion, Headache Psychiatric: Denies: Anxiety Hematological/Lymphatic: Denies: Anemia, Blood Clots Past Medical History - SOCIAL HISTORY Smoking Status: Former smoker Alcohol Use: None Drug Use: None - RESPIRATORY Hx Respiratory Disorders: Yes Hx COPD: Yes Hx Sleep Apnea: Yes Hx of CPAP: No - CARDIOVASCULAR Hx Cardio Disorders: Yes - NEURO Hx Neuro Disorders: Yes Comment:: 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 - GI Hx GI Disorders: Yes Hx Abdominal Pain: Yes Hx Diverticulitis: Yes Hx Nausea/Vomiting: Yes Hx Obstructive Bowel: Yes Hx Wt Loss/Wt Gain: No Comment:: constipation, bowel obstruction - Hx Genitourinary Disorders: Yes Hx UTI: Yes - ENDOCRINE Hx Endocrine Disorders: No Hx Diabetes: No Hx Thyroid Disease: No - MUSCULOSKELETAL Hx Musculoskeletal Disorders: Yes Hx Back Injury: Yes (x2 herniated disc) Hx Musculoskeletal Disease: Yes (left knee) Hx Osteoporosis: Yes Comment:: cortisone injection > 1 month ago for hip pain - PSYCH Hx Psych Problems: No - HEMATOLOGY/ONCOLOGY Hx Hematology/Oncology Disorders: No Hx Blood Transfusions: Yes Hx Blood Transfusion Reaction: No Family Medical History Any Significant Family History?: Yes Hx Cancer: Father Hx Diabetes: Father Hx Heart Disease: Mother Hx HTN: Mother Hx Resp Disorders: Father Physical Exam - General General Appearance: Alert, Oriented x3, Cooperative, Moderate distress Limitations: No limitations - Head Head exam: Atraumatic, Normocephalic, Normal inspection Head exam detail: negative: Abrasion, Contusion, Oconnor's sign, General tenderness, Hematoma, Laceration - Eye Eye exam: Normal appearance. negative: Conjunctival injection, Periorbital swelling, Periorbital tenderness, Scleral icterus - ENT Ear exam: negative: Auricular hematoma, Auricular trauma Nasal Exam: negative: Active bleeding, Discharge, Dried blood, Foreign body Mouth exam: negative: Drooling, Laceration, Muffled voice, Tongue elevation - Neck Neck exam: Normal inspection. negative: Meningismus, Tenderness - Respiratory Respiratory exam: Normal lung sounds bilaterally. negative: Respiratory distress, Rhonchi, Stridor, Wheezes - Cardiovascular Cardiovascular Exam: Regular rate, Normal rhythm, Normal heart sounds - GI/Abdominal GI/Abdominal exam: Soft, Tenderness, Other (Diffuse TTP on examination, mild distension, no rebound or guarding present.). negative: Rebound, Rigid - Rectal Rectal exam: Deferred - exam: Deferred - Extremities Extremities exam: Normal inspection. negative: Calf tenderness, Pedal edema, Tenderness - Back Back exam: Denies: CVA tenderness (R), CVA tenderness (L) - Neurological Neurological exam: Alert, Normal gait, Oriented X3 - Psychiatric Psychiatric exam: Normal affect, Normal mood - Skin Skin exam: Normal color. negative: Abrasion Type of lesion: negative: abrasion Course Vital Signs 11/13/16 06:40 Temperature 98.0 F Pulse Rate [ 99 H Pulse Ox Probe] Respiratory 18 Rate Blood Pressure 137/89 [Left Arm] Pulse Ox 90 L - Reevaluation(s) Reevaluation #1: 11/13/16 06:54 Patient was seen and examined, discussed with oncoming provider who will assume care and disposition at this time. Medical Decision Making - Lab Data Result diagrams: 11/13/16 06:38 11/13/16 06:38 Lab Results 11/13/16 Range/Units 06:38 WBC 7.3 (4.2-12.2) K/uL RBC 4.83 (3.80-5.40) M/uL Hgb 14.3 (11.6-16.0) gm/dl Hct 43.2 (35.0-47.0) % MCV 89.4 (81-97) fl MCH 29.6 (27-33) pg MCHC 33.1 (32-36) g/dl RDW 13.4 (11.5-14.5) % Plt Count 294 (130-400) K/uL MPV 10.2 (7.4-10.4) fl Gran % 78.0 (47-80) % Lymphocytes % 11.7 L (16-45) % Monocytes % 9.5 H (0-9) % Eosinophils % 0.7 (0-6) % Basophils % 0.1 (0-6) % Disposition Forms: Patient Portal Access Quality - Quality Measures Quality Measures: N/A - Blood Pressure Screening Does Patient Have Any of the Following: No Blood Pressure Classification: Pre-Hypertensive BP Reading Systolic Measurement: 137 Diastolic Measurement: 89 Screening for High Blood Pressure: < Pre-Hypertensive BP, F/U Documented > [ G8950] Pre-Hypertensive Follow-up Interventions: Referral to alternative/primary care provider.
[2016-11-13 06:56] LABS: ALB/GLOB RATIO 1.6 (1.1-1.8); ALBUMIN 4.7 g/dL (4.0-5.0); ALKALINE PHOSPHATASE 82 U/L (35-104); ALT/SGPT 15 U/L (<33); AST/SGOT 18 U/L (10.0-35.0); BLOOD UREA NITROGEN 17 mg/dL (6-20); CREATININE 0.7 mg/dL (0.5-0.9); EST GLOMERULAR FILTRATION RATE > 60 mL/min; GLUCOSE,RANDOM 117 mg/dL (74-109); TOTAL PROTEIN 7.7 g/dL (6.6-8.7)
[2016-11-13] MEDS ORDERED: 0.9 % SODIUM CHLORIDE 1000ML 1,000 ML IV SCH (07:00)
--- NOTE | 2016-11-13 07:23 | Emergency Department Record ---
History of Present Illness - General Chief Complaint: Abdominal Pain Stated Complaint: ABD PAIN Time Seen by Provider: 11/13/16 06:47 Source: Patient Mode of Arrival: Ambulatory Limitations: No limitations - History of Present Illness Initial Comments: Dr Mohan's chart was reviewed at the morning turnover The patient has abdominal pain with a history of prior SBO She has had gall bladder removed and sigmoidectomy in the past by Dr Wick She past a small amount of gas this morning and vomited just prior to arrival MD Complaint: Abdominal pain Onset/Timin -: Hour(s) Location: RLQ Radiation: Epigastric Severity: Moderate Quality: Aching, Dull Consistency: Intermittent, Getting worse Improves With: Vomiting Worsens With: Nothing Associated Symptoms: Diarrhea, Nausea, Vomiting - Related Data LMP (females 10-50): other Patient : No Hx Age of Menopause: 42 Home Medications Medication Instructions Recorded Confirmed Last Taken Gluc [place]enc[place]/Chondro [place]enc[place] A/Vit C/Mn 1 each PO DAILY 11/13/16 11/13/16 Unknown [Glucosamine-Chondroitin Cap] Previous Rx's Medication Instructions Recorded Omeprazole 20 mg PO DAILY #30 tab. 06/06/15 Allergies Allergy/AdvReac Type Severity Reaction Status Date / Time venom-honey bee Allergy SWELLING Unverified 09/30/16 18:31 (GENERAL) Travel Screening - Travel/Exposure Within Last 30 Days Have you traveled within the last 30 days?: No - Travel/Exposure Within Last Year Have you traveled outside the [place] in the last year?: No - Additonal Travel Details Have you been exposed to anyone with a communicable illness?: No - Travel Symptoms Symptom Screening: None Review of Systems Constitutional: Denies: Chills, Fever, Malaise, Night sweats Eyes: Denies: Eye discharge, Eye pain ENT: Denies: Congestion, Ear pain, Epistaxis Respiratory: Denies: Cough, Dyspnea Cardiovascular: Denies: Chest pain, Dyspnea on exertion Endocrine: Denies: Fatigue, Heat or cold intolerance Gastrointestinal: Reports: Abdominal pain, Nausea, Vomiting Genitourinary: Denies: Incontinence, Retention Musculoskeletal: Denies: Arthralgia, Back pain, Gout, Joint swelling Skin: Denies: Bruising, Change in color Neurological: Denies: Abnormal gait, Confusion, Headache Psychiatric: Denies: Anxiety Hematological/Lymphatic: Denies: Anemia, Blood Clots Past Medical History - SOCIAL HISTORY Smoking Status: Former smoker Alcohol Use: None Drug Use: None - RESPIRATORY Hx Respiratory Disorders: Yes Hx COPD: Yes Hx Sleep Apnea: Yes Hx of CPAP: No - CARDIOVASCULAR Hx Cardio Disorders: Yes - NEURO Hx Neuro Disorders: Yes Comment:: 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 - GI Hx GI Disorders: Yes Hx Abdominal Pain: Yes Hx Diverticulitis: Yes Hx Nausea/Vomiting: Yes Hx Obstructive Bowel: Yes Hx Wt Loss/Wt Gain: No Comment:: constipation, bowel obstruction - Hx Genitourinary Disorders: Yes Hx UTI: Yes - ENDOCRINE Hx Endocrine Disorders: No Hx Diabetes: No Hx Thyroid Disease: No - MUSCULOSKELETAL Hx Musculoskeletal Disorders: Yes Hx Back Injury: Yes (x2 herniated disc) Hx Musculoskeletal Disease: Yes (left knee) Hx Osteoporosis: Yes Comment:: cortisone injection > 1 month ago for hip pain - PSYCH Hx Psych Problems: No - HEMATOLOGY/ONCOLOGY Hx Hematology/Oncology Disorders: No Hx Blood Transfusions: Yes Hx Blood Transfusion Reaction: No Family Medical History Any Significant Family History?: Yes Hx Cancer: Father Hx Diabetes: Father Hx Heart Disease: Mother Hx HTN: Mother Hx Resp Disorders: Father Physical Exam - General General Appearance: Alert, Oriented x3, Cooperative, No acute distress Limitations: No limitations - Eye Eye exam: Normal appearance - ENT ENT exam: Normal exam Ear exam: Normal external inspection Nasal Exam: Normal inspection Mouth exam: Normal external inspection - Neck Neck exam: Normal inspection - GI/Abdominal GI/Abdominal exam: Soft, Tenderness. negative: Distended (the abdomen is soft but tender, she is tender in the epigastric area and the right lower, non distended) - Rectal Rectal exam: Deferred - exam: Deferred - Neurological Neurological exam: Alert, Oriented X3. negative: Altered - Psychiatric Psychiatric exam: Normal affect, Normal mood - Skin Skin exam: Dry, Intact, Normal color, Warm Course Vital Signs 11/13/16 11/13/16 06:40 07:02 Temperature 98.0 F Pulse Rate [ 99 H 90 Pulse Ox Probe] Respiratory 18 20 Rate Blood Pressure 137/89 131/78 [Left Arm] Pulse Ox 90 L 96 - Reevaluation(s) Reevaluation #1: The case was signed out at morning turnover by Dr Mohan The CBC was reviewed. No acute changes. The patient is currently in CT. EMR reviewed. Prior history of SBO in the past with admission. Hx of sigmoid resection and cholecystectomy. 11/13/16 07:05 No acute changes on the CMP. 11/13/16 07:19 11/13/16 07:38 Lipase is normal The patient has returned from CT Her pain is improved at this time 11/13/16 07:[address] report received: SBO with transition point noted. The patient's surgeon Dr Wick was paged. 11/13/16 08:43 I STEVE Wick. He will consult on the patient at [facility]. I STEVE Camarillo for admission to [facility]. Medical Decision Making - Lab Data Result diagrams: 11/13/16 06:38 11/13/16 06:38 Lab Results 11/13/16 11/13/16 Range/Units 06:38 06:38 WBC 7.3 (4.2-12.2) K/uL RBC 4.83 (3.80-5.40) M/uL Hgb 14.3 (11.6-16.0) gm/dl Hct 43.2 (35.0-47.0) % MCV 89.4 (81-97) fl MCH 29.6 (27-33) pg MCHC 33.1 (32-36) g/dl RDW 13.4 (11.5-14.5) % Plt Count 294 (130-400) K/uL MPV 10.2 (7.4-10.4) fl Gran % 78.0 (47-80) % Lymphocytes % 11.7 L (16-45) % Monocytes % 9.5 H (0-9) % Eosinophils % 0.7 (0-6) % Basophils % 0.1 (0-6) % Sodium 135 L (136-145) mmol/L Potassium 3.8 (3.4-4.5) mmol/L Chloride 94 L (98-107) mmol/L Carbon Dioxide 27.0 (22-29) mmol/L Anion Gap 14.0 (7-16) BUN 17 (6-20) mg/dL Creatinine 0.7 (0.5-0.9) mg/dL Estimated GFR > 60 mL/min Random Glucose 117 H (74-109) mg/dL Calcium 10.2 H (8.6-10.0) mg/dL Total Bilirubin 0.40 (0.2-1.0) mg/dL AST 18 (10.0-35.0) U/L ALT 15 (<33) U/L Alkaline Phosphatase 82 (35-104) U/L Total Protein 7.7 (6.6-8.7) g/dL Albumin 4.7 (4.0-5.0) g/dL Globulin 3.0 (1.4-4.8) gm/dL Albumin/Globulin Ratio 1.6 (1.1-1.8) Disposition Disposition: Admit Clinical Impression: Small bowel obstruction Disposition: Still a Patient at [facility] Decision to Admit: Admit from ER Decision to Admit Date: 11/13/16 Decision to Admit Time: 08:44 Condition: (1) Good Forms: Patient Portal Access Time of Disposition: 08:44 Quality - Quality Measures Quality Measures: N/A - Blood Pressure Screening Does Patient Have Any of the Following: No Blood Pressure Classification: Normal BP Reading Systolic Measurement: 107 Diastolic Measurement: 79 Screening for High Blood Pressure: < Normal BP, F/U Not Required > [G8783] Pre-Hypertensive Follow-up Interventions: Referral to alternative/primary care provider.
[2016-11-13] MEDS ORDERED: ALBUTEROL SULFATE (0.083%) 2.5 MG/3 ML NEB INH PRN (10:02)
[2016-11-13] MEDS: 0.9 % SODIUM CHLORIDE 1000ML 1,000 ML IV PRN ×2 (10:30→23:26)
[2016-11-13] MEDS: PANTOPRAZOLE SODIUM IV 40 MG VIAL IVP SCH (11:18)
[2016-11-13] MEDS: MORPHINE SULFATE 5 MG/ML PFS IVP PRN ×3 (11:18→23:32)
[2016-11-13] MEDS: ONDANSETRON HCL IV 4 MG/2 ML VIAL IVP PRN ×3 (13:02→23:33)
--- NOTE | 2016-11-13 14:40 | Medical Records Consult ---
DATE OF CONSULTATION: 11/13/2016 REASON FOR CONSULTATION: Small bowel obstruction. INDICATIONS: The patient is a 60-year-old female who is well known to me. She has had a 24-hour history of nausea, vomiting, abdominal pain. She had 3 bouts of emesis last night and 1 this morning. Overall, she currently feels better in the ER. She stated that she had a small bowel movement this morning and has been passing gas. She has had 3 prior episodes of the same, all which have resolved with conservative measures. PAST MEDICAL HISTORY: Significant for colon cancer, COPD, GERD. PAST SURGICAL HISTORY: Low anterior resection, laparoscopic cholecystectomy. CURRENT MEDICATIONS: 1. Protonix. 2. Ventolin. 3. Multivitamin. ALLERGIES: She has no known medical allergies. SOCIAL HISTORY: Denies any tobacco or alcohol usage. Has a past smoking history. PHYSICAL EXAMINATION: VITAL SIGNS: Stable. She is afebrile. HEART: Regular rate and rhythm. LUNGS: Decreased. ABDOMEN: Soft. Mildly distended. Bowel sounds are noted. EXTREMITIES: No trace of edema. DIAGNOSTIC DATA: I did review her laboratory values and CT scan. CT scan does show globally dilated small bowel with possible transition point in the pelvis. This is very similar to her CT scan she had back in May and June. IMPRESSION: Partial small bowel obstruction. PLAN: Would recommend conservative measures initially. Due to the lack of emesis, I think we can hold off on an NG tube. She needs IV hydration, n.p.o. status. We will follow her clinically. I recommend flat plate and upright for the morning. If she starts to continually vomit, I would place an NG tube to low intermittent suction. We will follow along with you. Thank you for allowing me to participate in her care. CC: Dr. Rabia MCKEE
[2016-11-14] MEDS: 0.9 % SODIUM CHLORIDE 1000ML 1,000 ML IV PRN (06:24)
--- NOTE | 2016-11-14 07:35 | CT SCAN REPORT ---
EXAM: ABDOMEN AND PELVIS CT WITH IV CONTRAST HISTORY: ACUTE RIGHT LOWER QUADRANT ABDOMINAL PAIN. TECHNIQUE: Contiguous axial images from the lung bases to the symphysis pubis were obtained after the uneventful intravenous administration of 100 ml of Omnipaque 300. Comparison: Abdomen and pelvis CT 01/08/16. FINDINGS: The lung bases are clear. Subcentimeter cyst at the hepatic dome. Mild intrahepatic and extrahepatic biliary dilatation unusual status post cholecystectomy. The spleen is unremarkable. The kidneys, adrenals, and pancreas are normal. The gallbladder is absent. Dilated fluid filled small bowel measuring up to 4 cm in diameter. Zone of transition image 62 of 111 in the lower mid abdomen anteriorly with no obvious mass. Adhesion not excluded. The ileum is decompressed. Moderate fecal material throughout the colon which is not distended. Mild colonic diverticulosis without diverticulitis. Enteric staple line near the rectum. No free intraperitoneal fluid or adenopathy. The abdominal aorta and mesenteric vessels are patent. No lytic or blastic osseous lesion. IMPRESSION: 1. PARTIAL SMALL BOWEL OBSTRUCTION WITH TRANSITION ZONE IN THE LOWER MID ABDOMEN ANTERIORLY POSSIBLY DUE TO ADHESION. 2. STATUS POST CHOLECYSTECTOMY. 3. ENTERIC STAPLE LINE AT THE RECTUM. JOB NUMBER: [id number] MTDD
[2016-11-14] MEDS: ACETAMINOPHEN 325 MG TAB PO PRN ×2 (08:39→13:00)
[2016-11-14] MEDS: PANTOPRAZOLE SODIUM IV 40 MG VIAL IVP SCH (09:33)
[2016-11-14] MEDS ORDERED: FLU VAC QS 2017-18 (INPT, 6MO+) 60MCG/0.5ML IM ONE (10:00)
--- NOTE | 2016-11-14 10:10 | History and Physical Report ---
DATE OF ADMISSION: 11/13/2016 CHIEF COMPLAINT: Abdominal pain. HISTORY OF THE PRESENT ILLNESS: This 60-year-old female presented with complaints of abdominal pain, epigastric in nature, actually radiating around the whole abdomen, and she stated that she had vomiting, which started about 7 p.m. last night and vomited multiple times. Her last episode of vomiting was at 5:30 a.m. today. She took 2 Aleve in the morning. She was seen in the Emergency Department first by Dr. Ferrari and by Dr. Rios, and she was admitted to the hospital for partial small-bowel obstruction. She did pass a little bit of gas. Dr. Wick did a consult in the Emergency Department. She has had previous abdominal surgeries because of diverticulitis multiple times, which has kind of caused the problems with her recurrent small-bowel obstructions and adhesions. The diverticulitis surgeries were in 2011. She has gone through multiple episodes of partial small-bowel obstruction with conservative management, and things seemed to open up. PAST MEDICAL HISTORY: Encephalitis x 2 at 8 years of age and at 31 years of age. She had a history of a heart murmur. COPD. She stopped smoking in 1979. She also has osteoarthritis of her hips. PAST SURGICAL HISTORY: Tonsillectomy, bowel resection due to diverticulitis in 2011, a cholecystectomy, fissure of the rectum repair, and tubal repair due to adhesions. MEDICATIONS ON ADMISSION: ProAir 2 puffs every 4 hours p.r.n., glucosamine chondroitin 1 daily, omeprazole 20 mg daily, vitamin D 5000 units daily, calcium 600 mg daily probably with vitamin D. ALLERGIES: Venom in honeybee. No medication allergies. SOCIAL HISTORY: She quit smoking in 1979. Former smoker. No alcohol or drug use. FAMILY HISTORY: Her father had cancer. Mother had heart disease. REVIEW OF SYSTEMS: HEENT: No upper respiratory infection symptoms, cough, cold, or congestion. Cardiovascular: No chest pain, palpitations, or arrhythmias. Respiratory: She denies being [id number]-[id number], cough, cold or congestion. Gastrointestinal: See Chief Complaint. She has nausea, vomiting, and diffuse abdominal pain. The last episode of vomiting at 5:30 a.m. today. She had no blood in the vomitus, and she did pass some gas today. She told me that at my evaluation. Musculoskeletal: Some diffuse arthritis, but able to move her arms and legs without problems. Neurologic: No CVA, paralysis, or paresthesias. Gynecologic: No lumps in her breasts or abdominal vaginal bleeding. Endocrine: No diabetes or thyroid disease. Integument: No rash, changes in moles, yellow skin or abnormal skin findings. PHYSICAL EXAMINATION: VITAL SIGNS: Height is 5'4". Weight is 160 pounds. Temperature is 98.1. Pulse is 87. Blood pressure 129/68. Respiratory rate is 18. Pulse ox is 92% on room air. HEENT: Pupils equal, round, and reactive to light and accommodation. Extraocular muscles intact. Throat is clear. Nose is clear. Tympanic membranes yuen. NECK: Supple. No jugular venous distention. No hepatojugular reflux. No carotid bruits. Thyroid is smooth. CARDIOVASCULAR: Regular rate and rhythm without murmurs, clicks, rubs, or gallops. RESPIRATORY: Clear to auscultation and percussion. ABDOMEN: Soft. There is pain in all 4 quadrants. No rebound or rigidity. No hepatosplenomegaly. No masses palpated. She does have bowel sounds in all 4 quadrants. EXTREMITIES: No pitting edema. No cyanosis or clubbing. Full range of motion. Peripheral pulses good. BREASTS: Deferred. GYNECOLOGIC: Deferred. RECTAL: Deferred. NEUROLOGIC: Cranial nerves II-XII intact. No gross deficits. Sensation normal. Strength normal. Deep tendon reflexes equal bilaterally. Babinski is negative. MENTAL STATUS: Alert and oriented x3. IMPRESSION: 1. Abdominal pain. 2. Partial small-bowel obstruction. 3. Vomiting. INPATIENT CERTIFICATION: Admit to Inpatient Care. Based on my medical assessment and after consideration of patient risk factors, age, comorbidities, and patient presenting symptoms on Acute, I expect this patient will remain in the hospital greater than or equal to 2 midnights, and the services needed warrant inpatient care because of partial small-bowel obstruction. ESTIMATED LENGTH OF STAY: 3 days. The patient may reasonably be expected to be discharged or transferred to a hospital within 96 hours after admission to [facility]. SERVICES NEEDED: IV fluids, pain control, and further evaluation. Dr. Wick came in and saw the patient in the Emergency Department. I certify that my determination is in accordance with my understanding of Medicare requirements for reasonable and necessary inpatient services. RAFI
[2016-11-14] MEDS: ONDANSETRON HCL IV 4 MG/2 ML VIAL IVP PRN (10:18)
--- NOTE | 2016-11-14 16:08 | Discharge Note ---
VTE H&P Assessment - Risk for VTE Risk for VTE: Yes Risk Level: Low Risk Assessment Date: 11/13/16 Risk Assessment Time: 20:00 VTE Orders Placed or Will Be Placed: Yes Discharge Medications - Discharge Medications Prescriptions: Dicyclomine HCl [Bentyl] 10 mg PO Q8H #30 cap Home Medications: Ambulatory Orders Calcium Carbonate [Calcium] 600 mg PO DAILY tab 03/16/15 [Last Taken 06/22/16] Omeprazole 20 mg PO DAILY #30 tab.dr 06/06/15 [Last Taken 06/22/16] Cholecalciferol (Vitamin D3) [Vitamin D3] 5,000 unit PO DAILY 06/23/16 [Last Taken 06/23/16] Albuterol Sulfate [Proair Hfa] 1 - 2 puff INH ASDIR 30 Days 09/30/16 [Last Taken Unknown] Gluc Cuenca/Chondro Cuenca A/Vit C/Mn [Glucosamine-Chondroitin Cap] 1 each PO DAILY [Last Taken Unknown] Dicyclomine HCl [Bentyl] 10 mg PO Q8H #30 cap 11/14/16 [Last Taken Unknown] Discharge Note - Date Date of Discharge Note: 11/14/16 Condition: (1) Good Additional Instructions: clear liquids and advance slowly to full liquids follow up with Dr. Rabia pereira afternoon Forms: Patient Portal Access
--- NOTE | 2016-11-15 11:23 | RADIOLOGY REPORT ---
EXAM: ABDOMEN 2 VIEW HISTORY: FOLLOW-UP SMALL BOWEL OBSTRUCTION THREE DAYS AGO. TECHNIQUE: Two-view abdomen. COMPARISON: Abdomen CT, 11/13/2016. FINDINGS: No free air. Interval improvement of dilated small bowel throughout the abdomen. There is a solitary residual loop of dilated small bowel, left upper quadrant, measuring 3.7 cm. The colon is decompressed. No suspicious calcification. Enteric staple line in the region of the rectum. IMPRESSION: INTERVAL IMPROVEMENT OF PARTIAL SMALL BOWEL OBSTRUCTION WITH ONLY ONE MILDLY DILATED LOOP OF SMALL BOWEL REMAINING IN THE LEFT UPPER QUADRANT. JOB NUMBER: [id number] [facility]
--- NOTE | 2016-11-17 12:50 | Discharge Summary ---
DISCHARGE DATE: 11/14/2016 DISCHARGE DIAGNOSES: 1. Partial small bowel obstruction, resolving. 2. Abdominal pain, resolving. 3. Vomiting stopped. REASON FOR HOSPITALIZATION: Abdominal pain. BRIEF HISTORY: This 60-year-old female presented with complaints of abdominal pain, epigastric in nature, actually radiating around to the entire abdomen. She started with vomiting, which started about 7 p.m. last night, the day of admission. She vomited multiple times. Her last episode of vomiting was at 5:30 a.m. She took 2 Aleves this morning. She was seen in the emergency room, first by Dr. Mohan. Dr. Hirsch admitted her to the hospital for small bowel obstruction. Dr. Wick came to the emergency department to evaluate the patient. He felt that the small bowel obstruction was similar to what she has had in the past. Will resolve conservatively with just n.p.o. and gradually increasing the diet. She was already starting to pass gas when Dr. Wick did his consult. The patient had multiple previous surgeries from diverticulitis, recurrent adhesions, and her diverticular surgery was in 2011. Significant findings: A CT scan showing partial shortness of breath. A repeat abdominal x-ray showed improvement of the small bowel obstruction. Laboratory: WBC was 7300, hemoglobin was 14.3. Potassium was 3.8, glucose was 117, sodium was 135, BUN 17, creatinine 0.7. Lipase was normal. Liver enzymes and hepatic function were normal. Reviewed Dr. Wick's consult and talked to him on the phone. HOSPITALIZATION SUMMARY: With therapy, the patient gradually improved. Was ambulating in the ott. Was feeling much better. She had 2 small bowel movements on the day of discharge and was feeling better that she could go home and continue to advance her diet. MEDICATIONS: Bentyl 10 mg 3 times a day for pain, Tylenol for pain. FOLLOW UP: Follow up with Dr. Mao Thursday. DIET: Clear liquid diet and slowly advance the diet. RAFI
== END 2016-11-14 16:25 | disposition home or self-care (01) ==
LOC: ER 06:28 → MEDSURG 09:22 → INTOOBSV 09:22
PROVIDERS: ADMIT Emergency Medicine; ATTEND Emergency Medicine
DX: K56.60 Unspecified intestinal obstruction (principal); R11.10 Vomiting, unspecified; J44.9 Chronic obstructive pulmonary disease, unspecified; Z85.038 Personal history of other malignant neoplasm of large intestine; Z87.891 Personal history of nicotine dependence
CPT/HCPCS: 99285 ×2; 96376; 96374; 96375; 96361; 83690; 85025; 80053; 74020; 74177; 90686; G0378 ×2; Q9967; J2405 ×2; J2270; 99217; 99220; C9113; J7030

== ENCOUNTER 2016-12-10 11:07 | Observation (INO) | payer BC ==
[2016-12-10] MEDS ORDERED: ONDANSETRON HCL IV 4 MG/2 ML VIAL IV ONE (11:29)
[2016-12-10] MEDS ORDERED: 0.9 % SODIUM CHLORIDE 1,000 ML BAG IV ONE (11:29)
--- NOTE | 2016-12-10 11:39 | Emergency Department Record ---
History of Present Illness - General Chief Complaint: Abdominal Pain Stated Complaint: BLOCKED BOWEL Time Seen by Provider: 12/10/16 11:18 Source: Patient Mode of Arrival: Ambulatory Limitations: No limitations - History of Present Illness Initial Comments: The patient has a hx of frequent SBO's and now feels like she has another one. She was well the day before yesterday and then last evening began to get nauseated and has been vomiting. She has vomited twice today. Her last normal BM was 2 days ago and yesterday she was passing very small amounts of liquid stool. Today she has been passing gas. The patient does see Dr. Wick and has had her gallbladder removed and her Sigmoid colon removed. MD Complaint: Abdominal pain Onset/Timin -: Days(s) Location: Diffuse Severity: Moderate Quality: Cramping Consistency: Intermittent Improves With: Other Worsens With: Eating Context: Other Associated Symptoms: Vomiting Treatments Prior to Arrival: Prescription analgesics - Related Data Patient : No Hx Age of Menopause: 42 Home Medications Medication Instructions Recorded Confirmed Last Taken Hydrocodone/Acetaminophen [[place] 1 tab PO ASDIR PRN 12/10/16 12/10/16 12/09/16 5-325 Tablet] Ondansetron [Zofran Odt] 1 tab SL ASDIR 12/10/16 12/10/16 12/09/16 Previous Rx's Medication Instructions Recorded Omeprazole 20 mg PO DAILY #30 06/06/15 Dicyclomine HCl [Bentyl] 10 mg PO Q8H #30 cap 11/14/16 Allergies Allergy/AdvReac Type Severity Reaction Status Date / Time venom-honey bee Allergy SWELLING Verified 12/10/16 11:10 (GENERAL) Travel Screening - Travel/Exposure Within Last 30 Days Have you traveled within the last 30 days?: No - Travel/Exposure Within Last Year Have you traveled outside the [place] in the last year?: No - Additonal Travel Details Have you been exposed to anyone with a communicable illness?: No - Travel Symptoms Symptom Screening: None Review of Systems Constitutional: Denies: Chills, Fever Eyes: Denies: Eye discharge ENT: Denies: Congestion Respiratory: Denies: Cough, Dyspnea Cardiovascular: Denies: Arrhythmia Endocrine: Denies: Fatigue Gastrointestinal: Reports: Abdominal pain, Nausea, Vomiting. Denies: Diarrhea Genitourinary: Denies: Dysuria Musculoskeletal: Denies: Arthralgia Past Medical History - SOCIAL HISTORY Smoking Status: Former smoker Alcohol Use: Rare Drug Use: None - RESPIRATORY Hx Respiratory Disorders: Yes Hx Asthma: No Hx Bronchitis: No Hx COPD: Yes Hx Dyspnea: No Hx Pneumonia: No Hx Pulmonary Embolism: No Hx Sleep Apnea: Yes Hx Tuberculosis: No Hx of CPAP: Yes (doesnt use) - CARDIOVASCULAR Hx Cardio Disorders: Yes Hx Abnormal EKG: No Hx Cardiac Cath: No Hx Chest Pain: No Hx CHF: No Hx Deep Vein Thrombosis: No Hx Edema: No Hx Heart Attack: No Hx Hypertension: No Hx Hypotension: No Hx Irregular Heartbeat: No Hx Palpitations: No Hx Pacemaker/Defib: No Hx Vascular Disease: No - NEURO Hx Neuro Disorders: Yes Hx Brain Tumor: No Hx CVA: No Hx Dementia: No Hx Dizziness: No Hx Headaches: No Hx Neuropathy: No Hx Parkinson's Disease: No Hx Seizures: No Hx Speech Problem: No Hx TIA: No Comment:: 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 - GI Hx GI Disorders: Yes Hx Abdominal Pain: Yes Hx Celiac Disease: No Hx Crohn's Disease: No Hx Diverticulitis: Yes Hx GI Bleed: No Hx Reflux: No Hx Hepatitis/Jaundice: No Hx Hiatal Hernia: No Hx Irritable Bowel: No Hx Liver Disease: No Hx Nausea/Vomiting: Yes Hx Obstructive Bowel: Yes Hx Pancreatitis: No Hx Rectal Bleeding: Yes (from fissure) Hx Ulcer: No Hx Wt Loss/Wt Gain: No Hx of Polyps: No Comment:: constipation, bowel obstruction - Hx Genitourinary Disorders: Yes Hx Bladder Problem: No Hx Dialysis: No Hx Kidney Stones: No Hx Renal Disease: No Hx UTI: Yes - ENDOCRINE Hx Endocrine Disorders: No Hx Diabetes: No Hx Thyroid Disease: No - MUSCULOSKELETAL Hx Musculoskeletal Disorders: Yes Hx Arthritis: No Hx Back Injury: Yes (x2 herniated disc) Hx Fibromyalgia: No Hx Gout: No Hx Musculoskeletal Disease: Yes (left knee) Hx Osteoporosis: Yes Comment:: cortisone injection > 1 month ago for hip pain - PSYCH Hx Psych Problems: No - HEMATOLOGY/ONCOLOGY Hx Hematology/Oncology Disorders: Yes Hx Anemia: No Hx Blood Disorders: No Hx Bruising: No Hx Cancer: No Hx Chemotherapy: No Hx Radiation Therapy: No Hx Clotting Problems: No Hx Sickle Cell Disease: No Hx Unexplained Bleeding: No Hx Blood Transfusions: Yes Hx Blood Transfusion Reaction: No Family Medical History Any Significant Family History?: Yes Hx Cancer: Father Hx Diabetes: Father Hx Heart Disease: Mother Hx HTN: Mother Hx Resp Disorders: Father Physical Exam - General General Appearance: Alert, Oriented x3, Cooperative, No acute distress - Head Head exam: Atraumatic, Normocephalic, Normal inspection - Eye Eye exam: Normal appearance, PERRL - Neck Neck exam: Normal inspection, Full ROM. negative: Tenderness - Respiratory Respiratory exam: Normal lung sounds bilaterally. negative: Respiratory distress - Cardiovascular Cardiovascular Exam: Regular rate, Normal rhythm, Normal heart sounds - GI/Abdominal GI/Abdominal exam: Soft, Tenderness (There is upper abdominal tenderness.). negative: Distended, Guarding - Extremities Extremities exam: Normal inspection, Full ROM, Normal capillary refill. negative: Tenderness - Neurological Neurological exam: Alert. negative: Motor sensory deficit Course Vital Signs 12/10/16 11:14 Temperature 98.3 F Pulse Rate 98 H Respiratory 20 Rate Blood Pressure 147/83 Pulse Ox 95 - Reevaluation(s) Reevaluation #1: I did discuss the CT results with the patient and the need for admission and she does agree. I also did consult with Dr. Wick and he will see the patient on the floor in [address] Camarillo was contacted and did accept the admission. 12/10/16 12:25 Medical Decision Making - Data Complexity MDM Data: Labs Ordered and/or Reviewed, X-Ray Ordered and/or Reviewed - Lab Data Result diagrams: 12/10/16 11:25 12/10/16 11:25 - Radiology Data Radiology results: Report reviewed (Abd CT: SBO similar to CT last month. Transition point in the low mid abdomen.) Disposition Disposition: Admit Clinical Impression: Small bowel obstruction Disposition: Still a Patient at [facility] Decision to Admit: Admit from ER Decision to Admit Date: 12/10/16 Decision to Admit Time: 12:28 Accepting Physician: Rabia Time Discussed w/Accepting Physician: 12:28 Condition: (2) Stable Forms: Patient Portal Access Time of Disposition: 12:28 Quality - Quality Measures Quality Measures: N/A - Blood Pressure Screening View Details: Yes Does Patient Have Any of the Following: No Blood Pressure Classification: Pre-Hypertensive BP Reading Systolic Measurement: 147 Diastolic Measurement: 83 Screening for High Blood Pressure: < Pre-Hypertensive BP, F/U Documented > [ [id number]] Pre-Hypertensive Follow-up Interventions: Referral to alternative/primary care provider.
[2016-12-10 11:44] LABS: HEMATOCRIT 42.5 % (35.0-47.0); MEAN CELL VOLUME 89.5 fl (81-97); MEAN CORPUSCULAR HEMOGLOBIN 29.5 pg (27-33); MEAN CORPUSCULAR HGB CONC 32.9 g/dl (32-36); MEAN PLATELET VOLUME 10.1 fl (7.4-10.4); PLATELET COUNT 287 K/uL (130-400); RED BLOOD COUNT 4.75 M/uL (3.80-5.40); RED CELL DISTRIBUTION WIDTH 13.8 % (11.5-14.5); WHITE BLOOD COUNT W/O DIFF 8.7 K/uL (4.2-12.2)
[2016-12-10 11:59] LABS: ALBUMIN 4.6 g/dL (4.0-5.0); ALKALINE PHOSPHATASE 73 U/L (35-104); ALT/SGPT 15 U/L (<33); AST/SGOT 17 U/L (10.0-35.0); BLOOD UREA NITROGEN 13 mg/dL (8-23); CREATININE 0.6 mg/dL (0.5-0.9); EST GLOMERULAR FILTRATION RATE > 60 mL/min; GLUCOSE,RANDOM 93 mg/dL (74-109); LIPASE 21 U/L (13-60); TOTAL PROTEIN 7.3 g/dL (6.6-8.7)
[2016-12-10 12:03] LABS: BILIRUBIN,DIRECT < 0.2 mg/dL (0-0.3)
[2016-12-10 12:08] LABS: URINE APPEARANCE CLEAR; URINE BILIRUBIN SMALL (NEGATIVE); URINE BLOOD TRACE-I (NEGATIVE); URINE COLOR YELLOW; URINE GLUCOSE (UA) NEGATIVE (NEGATIVE); URINE KETONE 40 mg/dL (NEGATIVE); URINE LEUKOCYTE ESTERASE NEGATIVE (NEGATIVE); URINE NITRITE NEGATIVE (NEGATIVE); URINE PROTEIN NEGATIVE (NEGATIVE)
[2016-12-10] MEDS ORDERED: HYDROMORPHONE HCL 1MG/ML **SYRINGE IVP ONE (12:24)
[2016-12-10 12:28] LABS: URINE BACTERIA FEW
[2016-12-10 12:29] LABS: URINE MUCUS MODERATE
[2016-12-10] MEDS: PANTOPRAZOLE SODIUM IV 40 MG VIAL IV SCH (16:14)
[2016-12-10] MEDS: 0.9 % SODIUM CHLORIDE 1000ML 1,000 ML IV PRN (16:14)
[2016-12-10] MEDS: ONDANSETRON HCL IV 4 MG/2 ML VIAL IVP PRN ×2 (16:18→20:21)
[2016-12-10] MEDS: HYDROMORPHONE HCL 1MG/ML **SYRINGE IVP PRN ×2 (16:21→20:20)
[2016-12-11] MEDS: 0.9 % SODIUM CHLORIDE 1000ML 1,000 ML IV PRN ×2 (00:05→08:48)
[2016-12-11] MEDS: ONDANSETRON HCL IV 4 MG/2 ML VIAL IVP PRN ×2 (01:40→05:30)
[2016-12-11] MEDS: HYDROMORPHONE HCL 1MG/ML **SYRINGE IVP PRN ×5 (01:41→17:43)
[2016-12-11 07:11] LABS: BLOOD UREA NITROGEN 17 mg/dL (8-23); CREATININE 0.5 mg/dL (0.5-0.9); EST GLOMERULAR FILTRATION RATE > 60 mL/min; GLUCOSE,RANDOM 68 mg/dL (74-109)
--- NOTE | 2016-12-11 07:26 | CT SCAN REPORT ---
EXAM: CT OF THE ABDOMEN AND PELVIS WITHOUT CONTRAST HISTORY: MID ABDOMINAL PAIN. TECHNIQUE: CT of the abdomen and pelvis was performed without oral or IV contrast. This limits evaluation of bowel and solid visceral organs. Comparison: 06/23/16 CT. FINDINGS: Limited evaluation of the lung bases is unremarkable. The osseous structures are grossly intact. Subcentimeter hypodensity in the liver, likely tiny cyst or hemangioma. Limited evaluation of the spleen, adrenal glands, pancreas, and kidneys is unremarkable. Status post cholecystectomy. Dilated, fluid filled loops of small bowel are again noted. Decompression of distal small bowel loops with a probable transition point in the lower central abdomen. The maximal diameter is 4.3 cm. Similar findings were present previously. Gas and stool in the colon. No free air or free fluid. IMPRESSION: FINDINGS AGAIN WORRISOME FOR SMALL BOWEL OBSTRUCTION, WITH PROBABLE TRANSITION POINT IN THE LOWER MID ABDOMINAL/UPPER PELVIC REGION. RELATIVE DECOMPRESSION OF THE DISTAL SMALL BOWEL LOOPS. SIMILAR FINDINGS WERE PRESENT ON THE PRIOR EXAM. JOB NUMBER: [id number] [facility]
--- NOTE | 2016-12-11 08:21 | History and Physical Report ---
DATE OF ADMISSION: 12/10/2016 CHIEF COMPLAINT: Abdominal pain, possible small bowel obstruction. HISTORY OF PRESENT ILLNESS: This patient stated that she developed abdominal pain which started yesterday which felt like her small bowel obstruction. She vomited 2 times through the night and came into the ER and was evaluated by Dr. Schafer and admitted to the hospital for a small bowel obstruction. CT scan revealing a transition point in a small bowel obstruction. Dr. Wick came in and consulted on the patient and felt it was a partial small bowel obstruction and wants to do conservative management and hopefully it will open up similar to the previous times. She has had multiple episodes of small bowel obstruction and partial small bowel obstruction. This problem started after diverticular surgery in 2011. PAST MEDICAL HISTORY: Encephalitis x2 at 8 years of age and at 31 years of age. She has a history of a heart murmur, COPD. She stopped smoking in 1979. She also has osteoarthritis of her hips. PAST SURGICAL HISTORY: Tonsillectomy, bowel resection due to diverticulitis in 2011, cholecystectomy, fissure of the rectum repair, tubal repair due to adhesions. MEDICATIONS: 1. Hydrocodone 1 p.r.n. 5 mg. 2. Zofran p.r.n. 3. Omeprazole 20 mg daily. 4. Glucosamine/chondroitin 1 daily. 5. Bentyl 10 mg q.8 h. 6. Vitamin D3, 5000 units daily. 7. Calcium 600 mg with vitamin D daily. 8. ProAir 2 puffs q.4 h. p.r.n. ALLERGIES: VENOM, HONEY BEES. No medication allergies. SOCIAL HISTORY: She quit smoking in 1950, former smoker. No alcohol or drug use. FAMILY HISTORY: Father had cancer. Mother had heart disease. REVIEW OF SYSTEMS: HEENT: No upper respiratory infection symptoms, cough, cold, or congestion. Cardiovascular: No chest pain, palpitations, or arrhythmia. Respiratory: She denies being short of breath, cough, cold, or congestion. Gastrointestinal: See HPI. She has nausea. She did have vomiting. No vomiting since the emergency department. Diffuse abdominal pain. She had no blood in the vomitus. She is now passing some clear liquid stools. Musculoskeletal: Some diffuse arthritis but able to move her arms and legs without problems. Neurological: No CVA, paralysis, or paresthesias. Gynecologic: No lumps in her breasts or abnormal vaginal bleeding. Endocrine: No diabetes or thyroid disease. Integument: No rash, change in moles, yellow skin, or abnormal skin findings. PHYSICAL EXAMINATION: VITALS: Height 5 feet 4 inches, weight 149 pounds. Temperature 98.1, pulse 86, blood pressure 122/57, respiratory rate 18, pulse ox 92% on room air. HEENT: Pupils are equal, round, and reactive to light and accommodation. Extraocular muscles are intact. Throat is clear. Nose is clear. Tympanic membranes are yuen. NECK: Supple. No jugular venous distention. No hepatojugular reflux. No carotid bruits. Thyroid is smooth. CARDIOVASCULAR: Regular rate and rhythm without murmurs, clicks, rubs, or gallops. RESPIRATORY: Clear to auscultation and percussion. ABDOMEN: Tender in all 4 quadrants. Soft. No rebound or rigidity. No hepatosplenomegaly, no masses palpated. She does have bowel sounds but hypoactive. EXTREMITIES: No pitting edema. No cyanosis, no clubbing. Full range of motion. Peripheral pulses are good. BREASTS: Exam deferred. GYNECOLOGICAL: Exam deferred. RECTAL: Exam deferred. NEUROLOGIC: Cranial nerves II-XII intact. No gross defects. Sensation normal, strength normal. Deep tendon reflexes equal bilaterally with Babinski negative. MENTAL STATUS: Alert and oriented x3. IMPRESSION: 1. Abdominal pain. 2. Partial small bowel obstruction and vomiting, which has resolved. PLAN: The patient has been admitted to the observation area to see how she turns around. IV fluids. We will start clear liquids cautiously and pain control. IV Protonix 40 mg daily. MTDD
--- NOTE | 2016-12-11 08:21 | Medical Records Consult ---
DATE OF CONSULTATION: 12/10/2016 REASON FOR CONSULTATION: Small bowel obstruction. HISTORY OF PRESENT ILLNESS: The patient is a 61-year-old female who is well familiar to me. She presents again to the hospital with nausea, vomiting, and bloating. She states that she vomited on 2 or 3 occasions today. She has been having bowel movements with the last liquid stool this morning. I have seen her in the past for the same, and she has come through with conservative measures. PAST MEDICAL HISTORY: Colon cancer. PAST SURGICAL HISTORY: Low anterior resection and laparoscopic cholecystectomy. CURRENT MEDICATIONS: 1. Bentyl. 2. [place]. ALLERGIES: BEE VENOM. SOCIAL HISTORY: Denies tobacco or alcohol usage. PHYSICAL EXAMINATION: VITAL SIGNS: Stable. She is afebrile. HEART: Regular rate and rhythm. LUNGS: Clear. ABDOMEN: Soft. [id number] tenderness. Bowel sounds are noted. She has a well-healed infraumbilical laparotomy scar as well as port site scars noted. LABORATORY DATA: Her laboratory values are normal. RADIOGRAPHIC DATA: I did review her CT scan which did show dilated small bowel with a possible transition point in her low mid abdomen. IMPRESSION: Partial small bowel obstruction. PLAN: I would recommend conservative measures with continued hydration and follow her clinically. If she continues to vomit, NG tube would be recommended. Assuming discharge, I would order an outpatient CT enterography to better delineate her small bowel. If this continues or something is seen on CTE, surgical intervention may be warranted. This was discussed in detail with the patient and she understands and agrees. RAFI
[2016-12-11] MEDS: PANTOPRAZOLE SODIUM IV 40 MG VIAL IV SCH (09:19)
[2016-12-11] MEDS ORDERED: ENOXAPARIN 40 MG/0.4 ML SYR SQ SCH (10:45)
--- NOTE | 2016-12-11 14:03 | Discharge Note ---
VTE H&P Assessment - Risk for VTE Risk for VTE: Yes Risk Level: Moderate Risk Assessment Date: 12/11/16 Risk Assessment Time: 11:00 VTE Orders Placed or Will Be Placed: Yes Discharge Medications - Discharge Medications Home Medications: Ambulatory Orders Calcium Carbonate [Calcium] 600 mg PO DAILY tab 03/16/15 [Last Taken 12/09/16] Omeprazole 20 mg PO DAILY #30 tab.dr 06/06/15 [Last Taken 12/09/16] Cholecalciferol (Vitamin D3) [Vitamin D3] 5,000 unit PO DAILY 06/23/16 [Last Taken 12/09/16] Albuterol Sulfate [Proair Hfa] 1 - 2 puff INH ASDIR 30 Days #9 09/30/16 [Last Taken 12/09/16] Gluc Cuenca/Chondro Cuenca A/Vit C/Mn [Glucosamine-Chondroitin Cap] 1 each PO DAILY [Last Taken 12/09/16] Dicyclomine HCl [Bentyl] 10 mg PO Q8H #30 cap 11/14/16 [Last Taken 12/09/16] Hydrocodone/Acetaminophen [[place] 5-325 Tablet] 1 tab PO ASDIR PRN 12/10/16 [ Last Taken 12/09/16] Ondansetron [Zofran Odt] 1 tab SL ASDIR 12/10/16 [Last Taken 12/09/16] Discharge Note - Date Date of Discharge Note: 12/11/16 Condition: (1) Good Additional Instructions: follow up with Dr. Camarillo on thursdaydec 15 at 10:30 am use norco and bentyl she has at home clear liquids for 24 hours and tomorrow slowly advance her diet Forms: Patient Portal Access Activity at Discharge: Increase Activity as Tolerated Diet at Discharge: Other
--- NOTE | 2016-12-12 12:30 | Discharge Summary ---
DATE OF DISCHAGE: 12/11/2016 DISCHARGE DIAGNOSES: 1. Partial small bowel obstruction. 2. History of obstructive sleep apnea, on CPAP. She does not use it. 3. History of diverticulitis. 4. History of arthritis, left knee and back area. ATTENDING PHYSICIAN: Ryan Camarillo DO REASON FOR HOSPITALIZATION: Mid abdominal pain that began the day prior to admission, small bowel movement yesterday kind of oozing. Evaluated by Dr. Schafer, admitted to the hospital for small bowel obstruction. Dr. Wick consulted on the patient. [place] it was a partial small bowel obstruction, conservative management. He mentioned that an outpatient CT enterography had been set up. SIGNIFICANT FINDINGS: The CT of the abdomen shows worrisome for small bowel obstruction with probable transition point in the lower mid abdominal/upper pelvic region relative decompression of the distal small bowel loops. Similar findings were present on the prior exam. Lab work: WBC 8700, hemoglobin 14.0, potassium 4.0, BUN 17, creatinine 0.5, magnesium 1.9. Urine unremarkable. There are 3-6 RBCs, 3-5 WBCs, and 3-6 epithelial cells moderate, a few bacteria. Ketones are positive. Small amount of bilirubin. THERAPY PROVIDED: The patient was given IV fluids, pain control, and Zofran. She gradually opened up and had a bowel movement prior to discharge. Feeling somewhat better but a little bit concerned because she was still a little distended. She has [place] and Bentyl at home. She will have her discharge with clear liquids for 24 hours, gradually increase the diet. Continue using [place] and Bentyl as needed. Follow up with me in the office in 4 days. CC: Dr. Delano MCKEE
== END 2016-12-11 18:40 | disposition home or self-care (01) ==
LOC: ER 11:07 → MEDSURG 15:19
PROVIDERS: ADMIT Emergency Medicine; ATTEND Emergency Medicine
DX: K56.690 Other partial intestinal obstruction (principal); R11.10 Vomiting, unspecified; J44.9 Chronic obstructive pulmonary disease, unspecified; Z87.891 Personal history of nicotine dependence; M16.0 Bilateral primary osteoarthritis of hip
CPT/HCPCS: 99285 ×2; 96374; 96375; 96361; 83735; 83690; 80076; 80048 ×2; 81001; 85027; 74176; G0378 ×2; J2405 ×2; J1170 ×2; 99217; 99220; C9113; J1650; J7030

== ENCOUNTER 2017-01-18 15:09 | Observation (INO) | payer BC ==
[2017-01-18] MEDS ORDERED: 0.9 % SODIUM CHLORIDE 1,000 ML BAG IV ONE ×2 (15:13→15:14)
[2017-01-18] MEDS ORDERED: ONDANSETRON HCL IV 4 MG/2 ML VIAL IVP ONE ×2 (15:15→18:04)
[2017-01-18] MEDS ORDERED: HYDROMORPHONE HCL 1MG/ML **SYRINGE IVP ONE ×2 (15:15→18:04)
--- NOTE | 2017-01-18 15:23 | Emergency Department Record ---
History of Present Illness - General Stated Complaint: VOMITTING,ABDOMINAL PAIN Time Seen by Provider: 01/18/17 15:11 Source: Patient, Family Mode of Arrival: Ambulatory Limitations: No limitations - History of Present Illness Initial Comments: 61 yo female presents with nausea, vomiting, and abdominal pain. The onset this time was this morning. She has a history of recurrent bowel obstructions. Her last admission was about a 6 weeks ago. She had outpatient CT enterography that was unremarkable since the last episode. She follows with Dr Wick. She has been having bowel movements. No blood in the vomit or stools. Her past surgical history includes a low anterior resection and lap olivia. MD Complaint: Abdominal pain -: Hour(s) Location: Diffuse Severity: Moderate Quality: Aching Consistency: Constant Improves With: Nothing Worsens With: Eating Associated Symptoms: Anorexia, Nausea - Related Data Hx Age of Menopause: 42 Previous Rx's Medication Instructions Recorded Omeprazole 20 mg PO DAILY #30 tab.dr 06/06/15 Dicyclomine HCl [Bentyl] 10 mg PO Q8H #30 cap 11/14/16 Ondansetron [Zofran Odt] 4 mg PO Q8H #15 tab.rapdis 01/18/17 Allergies Allergy/AdvReac Type Severity Reaction Status Date / Time venom-honey bee Allergy SWELLING Verified 01/18/17 15:22 (GENERAL) Review of Systems Constitutional: Denies: Chills, Fever, Weakness Eyes: Denies: Eye discharge ENT: Denies: Congestion, Throat pain Respiratory: Denies: Cough, Dyspnea, Hemoptysis, Stridor, Wheezes Cardiovascular: Denies: Chest pain, Palpitations, Syncope Endocrine: Denies: Fatigue Gastrointestinal: Reports: As per HPI, Abdominal pain, Nausea, Vomiting. Denies : Diarrhea, Hematemesis, Hematochezia Genitourinary: Denies: Dysuria, Hematuria Musculoskeletal: Denies: Arthralgia, Back pain, Joint swelling, Myalgia Skin: Denies: Bruising, Change in color, Rash Neurological: Denies: Abnormal gait, Confusion Psychiatric: Denies: Anxiety Hematological/Lymphatic: Denies: Anemia, Blood Clots, Easy bleeding, Easy bruising, Swollen glands Past Medical History - SOCIAL HISTORY Smoking Status: Former smoker - RESPIRATORY Hx Respiratory Disorders: Yes Hx Asthma: No Hx Bronchitis: No Hx COPD: Yes Hx Dyspnea: No Hx Pneumonia: No Hx Pulmonary Embolism: No Hx Sleep Apnea: Yes Hx Tuberculosis: No - CARDIOVASCULAR Hx Cardio Disorders: No Hx Abnormal EKG: No Hx Cardiac Cath: No Hx Chest Pain: No Hx CHF: No Hx Deep Vein Thrombosis: No Hx Edema: No Hx Heart Attack: No Hx Hypertension: No Hx Hypotension: No Hx Irregular Heartbeat: No Hx Palpitations: No Hx Pacemaker/Defib: No Hx Vascular Disease: No - NEURO Hx Neuro Disorders: Yes Hx Brain Tumor: No Hx CVA: No Hx Dementia: No Hx Dizziness: No Hx Headaches: No Hx Neuropathy: No Hx Parkinson's Disease: No Hx Seizures: No Hx Speech Problem: No Hx TIA: No Comment:: 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 - GI Hx GI Disorders: Yes Hx Abdominal Pain: Yes Hx Celiac Disease: No Hx Crohn's Disease: No Hx Diverticulitis: Yes Hx GI Bleed: No Hx Reflux: No Hx Hepatitis/Jaundice: No Hx Hiatal Hernia: No Hx Irritable Bowel: No Hx Liver Disease: No Hx Nausea/Vomiting: Yes Hx Obstructive Bowel: Yes Hx Pancreatitis: No Hx Rectal Bleeding: Yes (from fissure) Hx Ulcer: No Hx Wt Loss/Wt Gain: Yes (over 10 pounds since oct admit) Comment:: constipation, bowel obstruction - Hx Genitourinary Disorders: Yes Hx Bladder Problem: No Hx Dialysis: No Hx Kidney Stones: No Hx Renal Disease: No Hx UTI: Yes - ENDOCRINE Hx Endocrine Disorders: No Hx Diabetes: No Hx Thyroid Disease: No - MUSCULOSKELETAL Hx Musculoskeletal Disorders: Yes Hx Arthritis: No Hx Back Injury: Yes (x2 herniated disc) Hx Fibromyalgia: No Hx Gout: No Hx Musculoskeletal Disease: Yes (left knee) Hx Osteoporosis: Yes Comment:: cortisone injection for hip pain - PSYCH Hx Psych Problems: No - HEMATOLOGY/ONCOLOGY Hx Hematology/Oncology Disorders: Yes Hx Anemia: No Hx Blood Disorders: No Hx Bruising: No Hx Cancer: No Hx Chemotherapy: No Hx Radiation Therapy: No Hx Clotting Problems: No Hx Sickle Cell Disease: No Hx Unexplained Bleeding: No Hx Blood Transfusions: Yes Hx Blood Transfusion Reaction: No Family Medical History Hx Cancer: Father Hx Diabetes: Father Hx Heart Disease: Mother Hx HTN: Mother Hx Resp Disorders: Father Physical Exam - General General Appearance: Alert, Oriented x3, Cooperative, No acute distress, Anxious (due to active vomiting) Limitations: No limitations - Head Head exam: Normocephalic, Normal inspection - Eye Eye exam: Normal appearance, PERRL. negative: Conjunctival injection, Scleral icterus - ENT ENT exam: Normal exam, Mucous membranes moist Ear exam: Normal external inspection Nasal Exam: Normal inspection Mouth exam: Normal external inspection - Neck Neck exam: Normal inspection, Full ROM. negative: Tenderness - Respiratory Respiratory exam: Normal lung sounds bilaterally. negative: Respiratory distress - Cardiovascular Cardiovascular Exam: Regular rate, Normal rhythm, Normal heart sounds - GI/Abdominal GI/Abdominal exam: Soft, Tenderness (very soft abdomen, mild central tenderness , not distended). negative: Distended, Guarding, Rebound - Rectal Rectal exam: Deferred - exam: Deferred - Extremities Extremities exam: Normal inspection, Full ROM, Normal capillary refill. negative: Tenderness - Back Back exam: Reports: Normal inspection, Full ROM. Denies: Muscle spasm, Rash noted, Tenderness - Neurological Neurological exam: Alert, Normal gait, Oriented X3 - Psychiatric Psychiatric exam: Normal affect, Normal mood - Skin Skin exam: Dry, Intact, Normal color, Warm Course - Reevaluation(s) Reevaluation #1: EMR reviewed Consult 12/10/16 Dr Wick for SBO H and P Dr Camarillo 12/10/16 01/18/17 15:25 Vitals reviewed. Afebrile. 01/18/17 15:55 The CBC,CMP were reviewed No acute changes The lactic acid is normal The AAS was reviewed Finding or dilated loops with AFL noted. No FA. Possible recurrent SBO. 01/18/17 16:09 The patient is feeling much better. I SW Dr Wick. He is very familiar with Mrs Mchugh's history. He states her course is typically very brief with fluids and rest. He states if she is comfortable she may go home and follow up at 8ma. The patient requests DC home if possible to follow up in the morning. She will be observed in the ED. The abdomen is very soft and the patient currently has controlled symptoms. 01/18/17 16:14 01/18/17 16:42 The patient remains comfortable without pain or vomiting at this time 01/18/17 18:03 The nausea and pain returned The patient does not feel able to go home I STEVE Camarillo. He will admit and consult Dr Wick. Medical Decision Making - Lab Data Result diagrams: 01/18/17 15:25 01/18/17 15:25 Disposition Disposition: Admit Clinical Impression: Small bowel obstruction Disposition: Still a Patient at [facility] Decision to Admit: Admit from ER Decision to Admit Date: 01/18/17 Decision to Admit Time: 18:04 Instructions: Bowel Obstruction (ED) Additional Instructions: Return for a recheck if you have any pain or vomiting If you have well controlled pain and vomiting then return to the hospital at 8am to be seen in the [facility] for an evaluation by Dr Delano Taylor liquids only. No solid foods. Prescriptions: Ondansetron [Zofran Odt] 4 mg PO Q8H #15 tab.rapdis Referrals: John Wikc [DOCTOR OF OSTEOPATH] - [facility] Specialty Clinics [Provider Group] Time of Disposition: 16:52 Quality - Quality Measures Quality Measures: N/A - Blood Pressure Screening Does Patient Have Any of the Following: No Blood Pressure Classification: Hypertensive Reading Systolic Measurement: 177 Diastolic Measurement: 114 Screening for High Blood Pressure: < Pre-Hypertensive BP, F/U Documented > [ [id number]] Pre-Hypertensive Follow-up Interventions: Referral to alternative/primary care provider.
[2017-01-18 15:41] LABS: BASO % 0.1 % (0-6); EOS % 1.2 % (0-6); GRAN % 75.4 % (47-80); HEMATOCRIT 43.1 % (35.0-47.0); HEMOGLOBIN 13.9 gm/dl (11.6-16.0); LYMPH % 15.7 % (16-45); MEAN CELL VOLUME 91.5 fl (81-97); MEAN CORPUSCULAR HEMOGLOBIN 29.5 pg (27-33); MEAN CORPUSCULAR HGB CONC 32.3 g/dl (32-36); MEAN PLATELET VOLUME 9.9 fl (7.4-10.4); MONO % 7.6 % (0-9); PLATELET COUNT 324 K/uL (130-400); RED BLOOD COUNT 4.71 M/uL (3.80-5.40); WHITE BLOOD COUNT W/O DIFF 10.1 K/uL (4.2-12.2)
[2017-01-18 15:49] LABS: BLOOD UREA NITROGEN 14 mg/dL (8-23); CREATININE 0.6 mg/dL (0.5-0.9); EST GLOMERULAR FILTRATION RATE > 60 mL/min; TOTAL PROTEIN 7.6 g/dL (6.6-8.7)
[2017-01-18 15:51] LABS: GLUCOSE,RANDOM 97 mg/dL (74-109)
[2017-01-18 15:53] LABS: INR 0.97; PROTHROMBIN TIME (PATIENT) 10.5 SECONDS (9.5-12.1)
[2017-01-18 15:54] LABS: ALB/GLOB RATIO 1.7 (1.1-1.8); ALBUMIN 4.8 g/dL (4.0-5.0); ALKALINE PHOSPHATASE 81 U/L (35-104); ALT/SGPT 20 U/L (<33); AST/SGOT 18 U/L (10.0-35.0); LIPASE 32 U/L (13-60)
[2017-01-18] MEDS ORDERED: ONDANSETRON 4 MG ODT TABLET SL ONE (16:44)
[2017-01-18] MEDS ORDERED: HYDROCODONE/APAP 5/325MG TABLET PO ONE (16:49)
[2017-01-18] MEDS: 0.9 % SODIUM CHLORIDE 1000ML 1,000 ML IV PRN (20:16)
[2017-01-18] MEDS: ONDANSETRON HCL IV 4 MG/2 ML VIAL IVP PRN (22:19)
[2017-01-18] MEDS: HYDROMORPHONE HCL 1MG/ML **SYRINGE IVP PRN (22:20)
[2017-01-18 23:05] LABS: URINE APPEARANCE CLEAR; URINE BILIRUBIN NEGATIVE (NEGATIVE); URINE BLOOD NEGATIVE (NEGATIVE); URINE COLOR YELLOW; URINE GLUCOSE (UA) NEGATIVE (NEGATIVE); URINE KETONE NEGATIVE (NEGATIVE); URINE LEUKOCYTE ESTERASE TRACE (NEGATIVE); URINE NITRITE NEGATIVE (NEGATIVE); URINE PROTEIN NEGATIVE (NEGATIVE); URINE UROBILINOGEN 0.2 E.U./dL (0.20 - 1.00)
[2017-01-18 23:07] LABS: URINE BACTERIA FEW; URINE EPITHELIAL CELLS 0 - 2 (FEW); URINE RBC 0 - 2 (NONE SEEN)
[2017-01-19] MEDS: ONDANSETRON HCL IV 4 MG/2 ML VIAL IVP PRN ×6 (02:18→21:59)
[2017-01-19] MEDS: HYDROMORPHONE HCL 1MG/ML **SYRINGE IVP PRN ×6 (02:29→22:00)
[2017-01-19] MEDS: 0.9 % SODIUM CHLORIDE 1000ML 1,000 ML IV PRN ×2 (06:30→17:16)
--- NOTE | 2017-01-19 07:23 | RADIOLOGY REPORT ---
EXAM: ACUTE ABDOMEN SERIES HISTORY: EPIGASTRIC PAIN AND NAUSEA FOR ONE DAY. SMALL BOWEL OBSTRUCTION HISTORY. TECHNIQUE: AP supine and upright views of the abdomen were obtained as well as an upright PA view of the chest. Comparison: CT enterography dated 12/19/16. Acute abdomen series dated . FINDINGS: Gas and stool are noted throughout a nondilated colon to the level of the rectum. There is redemonstration of surgical chain suture at the expected level of the rectum. There are several gas and fluid distended, mildly dilated small bowel loops in the left mid to upper abdomen with the maximum caliber measuring 6 cm. A few differential air fluid levels are present. No definite new mass, organomegaly, or suspicious calcification is seen. Post surgical changes redemonstrated in the right upper quadrant. The heart is not enlarged and the pulmonary vasculature is nondilated. The lungs and pleural spaces are clear. The thoracic aorta is mildly tortuous and atherosclerotic. Mild degenerative changes scattered throughout the visualized spine with minimal S-shaped thoracolumbar scoliosis. Mild degenerative changes of the hips and shoulder girdles. IMPRESSION: 1. STATUS POST CHOLECYSTECTOMY. SURGICAL CHAIN SUTURE REDEMONSTRATED AT THE LEVEL OF THE RECTUM. 2. THERE ARE SEVERAL GAS AND FLUID DISTENDED, MILDLY DILATED LOOPS OF SMALL BOWEL IN THE LEFT MID TO UPPER ABDOMEN WITH ASSOCIATED AIR FLUID LEVELS SUSPICIOUS FOR MID SMALL BOWEL OBSTRUCTION. NO NEW MASS OR FREE INTRAPERITONEAL AIR. 3. NO EVIDENCE OF ACUTE CARDIOPULMONARY DISEASE. JOB NUMBER: [id number] MTDD
[2017-01-19] MEDS ORDERED: PANTOPRAZOLE SODIUM IV 40 MG VIAL IV SCH (10:00)
[2017-01-19] MEDS: ACETAMINOPHEN 500 MG TABLET PO PRN (11:27)
--- NOTE | 2017-01-19 14:30 | Medical Records Consult ---
DATE OF CONSULTATION: 01/19/2017 REASON FOR CONSULTATION: Small bowel obstruction. HISTORY OF PRESENT ILLNESS: The patient is a 61-year-old female who is well known to me. She has been admitted at least 6 or 7 times for small bowel obstructions which have resolved with conservative measures. I did see her about a month ago for the same thing where we did order a CT enterography. This was grossly normal. Nonetheless, it does not seem that she can get past 2-3 weeks without returning to the hospital. She was seen yesterday at [facility] ER for abdominal pain, nausea, and vomiting. She states that she feels about the same today. She is passing gas but has pain and nausea without her narcotics and Zofran. She has undergone a prior open low anterior resection as well. PAST MEDICAL HISTORY: Significant for encephalitis, small bowel obstruction. PAST SURGICAL HISTORY: Low anterior resection. CURRENT MEDICATIONS: 1. Zofran. 2. [place]. PHYSICAL EXAMINATION: VITAL SIGNS: Stable. She is afebrile. HEART: Regular rate and rhythm. LUNGS: Clear. ABDOMEN: Soft. Minimal tenderness in the right and left upper quadrants. Bowel sounds are noted. LABORATORY DATA: I did review her laboratory studies. She had a normal white count, normal chemistries, normal creatinine. IMPRESSION: Partial small bowel obstruction. PLAN: Would follow her clinically. Clear liquid diet should be started. What I told her is due to the fact she has been admitted at least 7 times in the last year and a half, she could entertain the possibility of a laparoscopy. This wound be in the face of a normal CT enterography which did not show any elements of obstruction. Right now, I do not have a clear-cut etiology for her recurrent SBOs but I suspect adhesions would be at the top of the list. If we can get her out of the hospital, I will schedule her for a laparoscopy with possible laparotomy later this week. Thank you for this referral. CC: Dr. Ryan MCKEE
--- NOTE | 2017-01-19 14:30 | History and Physical Report ---
DATE OF ADMISSION: 01/18/2017 CHIEF COMPLAINT: Abdominal pain and vomiting, possible small bowel partial obstruction. HISTORY OF PRESENT ILLNESS: This 61-year-old female presented to the emergency department. She woke up on 01/18/2017 with abdominal pain and vomiting similar to previous episodes of partial small bowel obstruction. She came into the ER for evaluation. She was seen by Dr. Rios, admitted to the hospital for small bowel obstruction. This has happened about [address] Wick is the surgeon who has been following alone. He is planning to see her today. PAST MEDICAL HISTORY: Encephalitis x2 at 8 years of age and at 31 years of age. She has a history of heart murmur, COPD. She stopped smoking in the . 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 PAST SURGICAL HISTORY: Tonsillectomy, bowel resection due to diverticulitis in 2011, cholecystectomy, fissure of the rectum with repair, tubal repair due to adhesions. HOME MEDICATIONS: 1. Zofran 4 mg q.8 h. 2. Omeprazole 20 mg daily. 3. [place], she is out of those at this point. 4. Glucosamine/chondroitin 1 daily. 5. Bentyl 10 mg q.8 h. 6. D3, 5000 units daily. 7. Calcium carbonate 600 units daily. 8. ProAir 2 puffs q.4 h. p.r.n. ALLERGIES: VENOM, [place]. No medical allergies. SOCIAL HISTORY: She quit smoking in 1979. No alcohol or drug use. FAMILY HISTORY: Father had cancer. Mother had heart disease. REVIEW OF SYSTEMS: HEENT: No upper respiratory infection symptoms, cough, cold, or congestion. Cardiovascular: No chest pain, palpitations, or arrhythmia. Respiratory: She denies being short of breath, cough, cold, or congestion. Gastrointestinal: See Chief Complaint. She has nausea, vomiting, and abdominal pain, mostly upper abdominal and left lower quadrant. She was seen in the emergency department. See ER chart. No blood in the vomit. She is now passing some small amounts of gas. No stool yet. Musculoskeletal: Diffuse arthritis. Able to move her arms and legs without problems. Neurological: No CVA, paralysis, or paresthesias. Gynecological: No lumps in her breasts or abnormal vaginal bleeding. Endocrine: No diabetes or thyroid disease. Integument: No rash, ulcers, change in moles, or yellow skin or abdominal skin lesions. PHYSICAL EXAMINATION: VITALS: Height 5 feet 4 inches, weight 156 pounds. Temperature 98.6, pulse 91, blood pressure 135/85, respiratory rate 18, pulse ox 92% on room air. HEENT: Pupils are equal, round, and reactive to light and accommodation. Extraocular muscles are intact. Throat is clear. Nose is clear. Tympanic membranes are yuen. NECK: Supple. No jugular venous distention. No hepatojugular reflux. No carotid bruits. Thyroid is smooth. CARDIOVASCULAR: Regular rate and rhythm without murmurs, clicks, rubs, or gallops. RESPIRATORY: Clear to auscultation and percussion. ABDOMEN: Soft. Abdomen is tender in the upper abdomen and left lower quadrant. No rebound or rigidity. No hepatosplenomegaly, no masses. She has tenderness on palpation in those 3 areas. She does have bowel sounds but hypoactive. EXTREMITIES: No pitting edema. No cyanosis, no clubbing. Full range of motion. Peripheral pulses are good. BREASTS: Exam deferred. GYNECOLOGICAL: Exam deferred. RECTAL: Exam deferred. NEUROLOGIC: Cranial nerves II-XII intact. No gross defects. Sensation normal, strength normal. Deep tendon reflexes equal bilaterally with Babinski negative. MENTAL STATUS: Alert and oriented x3. IMPRESSION: 1. Abdominal pain. 2. Partial small bowel obstruction, recurrent, with vomiting. PLAN: Dr. Wick consult. Pain control. IV fluids. MTDD
[2017-01-20] MEDS: ACETAMINOPHEN 500 MG TABLET PO PRN (04:37)
[2017-01-20] MEDS ORDERED: HYDROCODONE/APAP 5/325MG TABLET PO PRN (06:02)
--- NOTE | 2017-01-20 06:54 | Discharge Note ---
VTE H&P Assessment - Risk for VTE Risk for VTE: Yes Risk Level: Very Low Risk Assessment Date: 01/19/17 Risk Assessment Time: 15:00 VTE Orders Placed or Will Be Placed: No VTE Reason for No Prophylaxis: Not Indicated Discharge Medications - Discharge Medications Prescriptions: Hydrocodone/Acetaminophen [[place] 5-325 Tablet] 1 tab PO Q6HR PRN #30 tablet PRN Reason: Pain - General Ondansetron [Zofran Odt] 4 mg PO Q8H #15 tab.kieran Home Medications: Ambulatory Orders Calcium Carbonate [Calcium] 600 mg PO DAILY tab 03/16/15 [Last Taken 1 Day Ago ~01/17/17] Omeprazole 20 mg PO DAILY #30 tab 06/06/15 [Last Taken 1 Day Ago ~01/17/17] Cholecalciferol (Vitamin D3) [Vitamin D3] 5,000 unit PO DAILY 06/23/16 [Last Taken 1 Day Ago ~01/17/17] Albuterol Sulfate [Proair Hfa] 1 - 2 puff INH ASDIR 30 Days #9 09/30/16 [Last Taken 1 Day Ago ~01/17/17] Gluc [place]/Chondro [place] A/Vit C/Mn [Glucosamine-Chondroitin Cap] 1 each PO DAILY [Last Taken 12/09/16] Dicyclomine HCl [Bentyl] 10 mg PO Q8H #30 cap 11/14/16 [Last Taken 1 Day Ago ~] Ondansetron [Zofran Odt] 1 tab SL ASDIR 12/10/16 [Last Taken 1 Day Ago ~01/17/17 ] Ondansetron [Zofran Odt] 4 mg PO Q8H #15 tab.kimdis 01/18/17 [Last Taken Unknown ] Acetaminophen [Tylenol 500Mg Tab] 1,000 mg PO Q8H PRN tablet 01/20/17 [Last Taken Unknown] Hydrocodone/Acetaminophen [[place] 5-325 Tablet] 1 tab PO Q6HR PRN #30 tablet 07/02 [Last Taken Unknown] Discharge Note - Date Date of Discharge Note: 01/20/17 Condition: (1) Good Instructions: Bowel Obstruction (ED) Additional Instructions: contact Dr. Wick's office to get set up for surgery at [facility] on . advance diet slowly tylenol or norco for pain follow up with Dr. Camarillo in 2 weeks. Please give a note for work off till Jan 23, 2017 Prescriptions: Ondansetron [Zofran Odt] 4 mg PO Q8H #15 tab.rapdis Referrals: [facility] Specialty Clinics [Provider Group] John Wick [DOCTOR OF OSTEOPATH] - Forms: Patient Portal Access Activity at Discharge: Increase Activity as Tolerated Diet at Discharge: Other (advance diet as tolerated)
--- NOTE | 2017-01-20 09:01 | Discharge Summary ---
DATE OF ADMISSION: 01/18/2017 DATE OF DISCHARGE: 01/20/2017 DISCHARGE DIAGNOSES: 1. Partial small-bowel obstruction, resolving. 2. Abdominal pain, resolving. ATTENDING PHYSICIAN: Ryan Camarillo DO REASON FOR HOSPITALIZATION: Abdominal pain and vomiting. HISTORY: This 61-year-old female presented to the Emergency Department stating she woke up on 01/18/2017 with abdominal pain and vomiting similar to previous episodes of partial small-bowel obstruction. She has had about 7 episodes of this in the last year and a half. She was seen by Dr. Rios in hospital, admitted to the hospital for pain control and IV fluids and further evaluation by Dr. Wick. Also, Dr. Wick was planning to see her today too. Consultation with Dr. Wick with an impression of partial small-bowel obstruction. SIGNIFICANT FINDINGS FROM EXAMINATION: The abdominal x-ray showing status post cholecystectomy, surgical chain suture demonstrated at the level of the rectum, several gas and fluid-distended mildly dilated loops of small bowel in the left mid to upper abdomen with associated air-fluid levels suspicious for mid small-bowel obstruction. No new mass or free intraperitoneal air. No evidence of acute cardiopulmonary disease. LABORATORY: WBC 10,100. Hemoglobin 13.9. Chemistries: Chloride is 93, otherwise normal. BUN 14. Creatinine 0.6. Liver enzymes normal. Lipase normal. Urine: 3-5 wbc's, few bacteria. We are waiting for the culture before we start treatment. She has no symptoms of urinary tract infection. THERAPY PROVIDED: IV fluids. Dilaudid IV. Patient had 2 large bowel movements during the night. She is feeling much better. CONDITION AT DISCHARGE: Much improved. Still some tenderness in the upper abdomen, but she feels so much better that at this point she will be discharged to follow up with Dr. Wick, who is planning a laparoscopic procedure to see why she is having these frequent bowel obstructions. This is planned for at [facility]. RAFI
--- NOTE | 2017-01-20 09:38 | History and Physical Report ---
CHIEF COMPLAINT: Small bowel obstruction. HISTORY OF PRESENT ILLNESS: The patient is a 61-year-old female who is well known to me. She has been admitted at least 6 or 7 times for small bowel obstructions which have resolved with conservative measures. I did see her about a month ago for the same thing where we did order a CT enterography. This was grossly normal. Nonetheless, it does not seem that she can get past 2-3 weeks without returning to the hospital. She was seen yesterday at [facility] ER for abdominal pain, nausea, and vomiting. She states that she feels about the same today. She is passing gas but has pain and nausea without her narcotics and Zofran. She has undergone a prior open low anterior resection as well. PAST MEDICAL HISTORY: Significant for encephalitis, small bowel obstruction. PAST SURGICAL HISTORY: Low anterior resection. CURRENT MEDICATIONS: 1. Zofran. 2. [place]. PHYSICAL EXAMINATION: VITAL SIGNS: Stable. She is afebrile. HEART: Regular rate and rhythm. LUNGS: Clear. ABDOMEN: Soft. Minimal tenderness in the right and left upper quadrants. Bowel sounds are noted. LABORATORY DATA: I did review her laboratory studies. She had a normal white count, normal chemistries, normal creatinine. IMPRESSION: Partial small bowel obstruction. PLAN: Would follow her clinically. Clear liquid diet should be started. What I told her is due to the fact she has been admitted at least 7 times in the last year and a half, she could entertain the possibility of a laparoscopy. This wound be in the face of a normal CT enterography which did not show any elements of obstruction. Right now, I do not have a clear-cut etiology for her recurrent SBOs but I suspect adhesions would be at the top of the list. If we can get her out of the hospital, I will schedule her for a laparoscopy with possible laparotomy later this week. Thank you for this referral. CC: Dr. Ryan MCKEE
== END 2017-01-20 09:35 | disposition home or self-care (01) ==
LOC: ER 15:09 → MEDSURG 18:56
PROVIDERS: ADMIT Emergency Medicine; ATTEND Emergency Medicine
DX: K56.600 Partial intestinal obstruction, unspecified as to cause (principal); R11.2 Nausea with vomiting, unspecified
CPT/HCPCS: 99285 ×2; 96376; 96374; 96375; 96361; 82310; 83605; 83690; 85025; 85730; 85610; 80053; 81001; 74022; G0378 ×3; J2405 ×2; J1170 ×2; 99220; 99225; C9113; J7030

== ENCOUNTER 2018-03-08 15:57 | Observation (INO) | payer BC ==
[2018-03-08] MEDS ORDERED: DIPHENHYDRAMINE HCL 50 MG/ML VIAL IVP ONE (16:08)
[2018-03-08] MEDS ORDERED: METHYLPREDNISOLONE PF 125MG/VIAL IVP ONE (16:08)
--- NOTE | 2018-03-08 16:15 | Emergency Department Record ---
History of Present Illness - General Chief complaint: Allergic Reaction Stated complaint: ALLERGIC REATION TO MEDICATION? Time Seen by Provider: 03/08/18 16:04 Source: Patient Mode of Arrival: Ambulatory Limitations: No limitations - History of Present Illness Initial Comments: The patient is here due to developing an itchy rash, facial swelling, mild chest pressure and SOB after taking Bactrim for a presumed UTI. The patient took the medicine about an hour ago and soon after developed the symptoms. She presently denies any pain, SOB, or difficulty swallowing or talking but is itching all over. She has had Bactrim in the past also with no problems. MD Complaint: Allergic reaction, Hives, Facial swelling Onset/Timin -: Minutes(s) Exposure: Medication Symptoms: Itching, Rash, Difficulty breathing, Facial swelling, Lip swelling, Other Severity: Moderate Treatment Prior to Arrival: None Previous Allergy History: None - Related Data Allergies Allergy/AdvReac Type Severity Reaction Status Date / Time venom-honey bee Allergy SWELLING Verified 03/08/18 15:59 (GENERAL) Travel Screening - Travel/Exposure Within Last 30 Days Have you traveled within the last 30 days?: No Review of Systems Constitutional: Denies: Chills, Fever Eyes: Denies: Eye discharge ENT: Denies: Congestion Respiratory: Reports: Cough, Dyspnea. Denies: Hemoptysis Cardiovascular: Reports: Chest pain. Denies: Dyspnea on exertion Endocrine: Denies: Fatigue Gastrointestinal: Denies: Diarrhea, Vomiting Genitourinary: Denies: Dysuria Musculoskeletal: Denies: Back pain Skin: Denies: Bruising Past Medical History - SOCIAL HISTORY Smoking Status: Former smoker Alcohol Use: None Drug Use: None - RESPIRATORY Hx Respiratory Disorders: Yes Hx Asthma: No Hx Bronchitis: No Hx COPD: Yes Hx Dyspnea: No Hx Pneumonia: No Hx Pulmonary Embolism: No Hx Sleep Apnea: Yes Hx Tuberculosis: No - CARDIOVASCULAR Hx Cardio Disorders: No Hx Abnormal EKG: No Hx Cardiac Cath: No Hx Chest Pain: No Hx CHF: No Hx Deep Vein Thrombosis: No Hx Edema: No Hx Heart Attack: No Hx Hypertension: No Hx Hypotension: No Hx Irregular Heartbeat: No Hx Palpitations: No Hx Pacemaker/Defib: No Hx Vascular Disease: No - NEURO Hx Neuro Disorders: Yes Hx Brain Tumor: No Hx CVA: No Hx Dementia: No Hx Dizziness: No Hx Headaches: No Hx Neuropathy: No Hx Parkinson's Disease: No Hx Seizures: No Hx Speech Problem: No Hx TIA: No Comment:: 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 - GI Hx GI Disorders: Yes Hx Abdominal Pain: Yes Hx Celiac Disease: No Hx Crohn's Disease: No Hx Diverticulitis: Yes Hx GI Bleed: No Hx Reflux: Yes Hx Hepatitis/Jaundice: No Hx Hiatal Hernia: No Hx Irritable Bowel: No Hx Liver Disease: No Hx Nausea/Vomiting: Yes Hx Obstructive Bowel: Yes Hx Pancreatitis: No Hx Rectal Bleeding: Yes (from fissure) Hx Ulcer: No Hx Wt Loss/Wt Gain: Yes (over 10 pounds since oct admit) Comment:: constipation, bowel obstruction - Hx Genitourinary Disorders: Yes Hx Bladder Problem: No Hx Dialysis: No Hx Kidney Stones: No Hx Renal Disease: No Hx UTI: Yes - ENDOCRINE Hx Endocrine Disorders: No Hx Diabetes: No Hx Thyroid Disease: No - MUSCULOSKELETAL Hx Musculoskeletal Disorders: Yes Hx Arthritis: No Hx Back Injury: Yes (x2 herniated disc) Hx Fibromyalgia: No Hx Gout: No Hx Musculoskeletal Disease: Yes (left knee) Hx Osteoporosis: Yes Comment:: cortisone injection for hip pain - PSYCH Hx Psych Problems: No - HEMATOLOGY/ONCOLOGY Hx Hematology/Oncology Disorders: Yes Hx Anemia: No Hx Blood Disorders: No Hx Bruising: No Hx Cancer: No Hx Chemotherapy: No Hx Radiation Therapy: No Hx Clotting Problems: No Hx Sickle Cell Disease: No Hx Unexplained Bleeding: No Hx Blood Transfusions: Yes Hx Blood Transfusion Reaction: No Family Medical History Any Significant Family History?: Yes Hx Cancer: Father Hx Diabetes: Father Hx Heart Disease: Mother Hx HTN: Mother Hx Resp Disorders: Father Physical Exam - General General Appearance: Alert, Oriented x3, Cooperative, No acute distress - Head Head exam: Atraumatic, Normocephalic, Normal inspection - Eye Eye exam: Normal appearance, PERRL, EOMI - ENT Throat exam: Normal inspection. negative: Tonsillar erythema, Tonsillar exudate - Neck Neck exam: Normal inspection, Full ROM. negative: Tenderness - Respiratory Respiratory exam: Normal lung sounds bilaterally. negative: Respiratory distress - Cardiovascular Cardiovascular Exam: Regular rate, Normal rhythm, Normal heart sounds - GI/Abdominal GI/Abdominal exam: Soft, Normal bowel sounds. negative: Tenderness - Extremities Extremities exam: Normal inspection, Full ROM, Normal capillary refill. negative: Tenderness - Neurological Neurological exam: Alert. negative: Motor sensory deficit - Skin Skin exam: Rash, Urticaria (There is a mild urticarial rash to the arms and facial area with mild erythema. There is no obvious edema.) Course Vital Signs 03/08/18 16:01 Temperature 97.7 F Pulse Rate 75 Respiratory 20 Rate Blood Pressure 147/92 Pulse Ox 98 - Reevaluation(s) Reevaluation #1: The patient is doing much better at this time. She denies any SOB, ABNER, or itching. 03/08/18 16:41 Reevaluation #2: The patient is doing better at this time. She denies any CP or SOB at this time and her rash is improved. I did discuss the case with Dr. Camarillo and he does agree to the short stay admission. He would like the patient placed on macrobid for the bacteria in the urine and he will see her tomorrow. 03/08/18 17:55 Medical Decision Making - Data Complexity MDM Data: Labs Ordered and/or Reviewed, X-Ray Ordered and/or Reviewed, EKG Ordered and/or Reviewed - Lab Data Result diagrams: 03/08/18 16:10 03/08/18 16:10 - EKG Data -: EKG Interpreted by Tx EKG: No Acute Changes, Normal EKG - Radiology Data Radiology results: Report reviewed (CXR: Neg.) Disposition Disposition: Admit Clinical Impression: Anaphylactic reaction Qualifiers: Encounter type: initial encounter Qualified Code(s): T78.2XXA - Anaphylactic shock, unspecified, initial encounter Disposition: Still a Patient at [facility] Decision to Admit: Admit from ER Decision to Admit Date: 03/08/18 Decision to Admit Time: 17:57 Accepting Physician: Rabia Time Discussed w/Accepting Physician: 17:57 Condition: (2) Stable Forms: Patient Portal Access Time of Disposition: 17:57 Quality - Quality Measures Quality Measures: N/A - Blood Pressure Screening View Details: Yes Does Patient Have Any of the Following: No Blood Pressure Classification: Hypertensive Reading Systolic Measurement: 147 Diastolic Measurement: 92 Screening for High Blood Pressure: < First Hypertensive BP, F/U Documented > [ G8950] First Hypertensive Follow-up Interventions: Referral to alternative/primary care provider.
[2018-03-08 16:16] LABS: BASO % 0.2 % (0-6); EOS % 1.7 % (0-6); GRAN % 60.6 % (47-80); LYMPH % 25.8 % (16-45); MEAN CELL VOLUME 92.8 fl (81-97); MEAN CORPUSCULAR HEMOGLOBIN 29.4 pg (27-33); MEAN CORPUSCULAR HGB CONC 31.7 g/dl (32-36); MEAN PLATELET VOLUME 9.8 fl (7.4-10.4); MONO % 11.7 % (0-9); PLATELET COUNT 300 K/uL (130-400); RED BLOOD COUNT 4.42 M/uL (3.80-5.40); WHITE BLOOD COUNT W/O DIFF 5.2 K/uL (4.2-12.2)
[2018-03-08 16:25] LABS: BILIRUBIN,TOTAL < 0.20 mg/dL (0.2-1.0); BLOOD UREA NITROGEN 8 mg/dL (8-23); CREATININE 0.6 mg/dL (0.5-0.9); EST GLOMERULAR FILTRATION RATE > 60 mL/min
[2018-03-08 16:28] LABS: GLUCOSE,RANDOM 92 mg/dL (74-109)
[2018-03-08 16:30] LABS: ALB/GLOB RATIO 1.6 (1.1-1.8); ALBUMIN 4.3 g/dL (4.0-5.0); ALKALINE PHOSPHATASE 82 U/L (45-87); ALT/SGPT 25 U/L (<33); AST/SGOT 24 U/L (10.0-35.0)
[2018-03-08 16:55] LABS: URINE APPEARANCE CLEAR; URINE BILIRUBIN NEGATIVE (NEGATIVE); URINE BLOOD NEGATIVE (NEGATIVE); URINE COLOR YELLOW; URINE GLUCOSE (UA) NEGATIVE (NEGATIVE); URINE KETONE NEGATIVE (NEGATIVE); URINE LEUKOCYTE ESTERASE NEGATIVE (NEGATIVE); URINE NITRITE POSITIVE (NEGATIVE); URINE PROTEIN NEGATIVE (NEGATIVE); URINE UROBILINOGEN 0.2 E.U./dL (0.20 - 1.00)
[2018-03-08 17:04] LABS: URINE BACTERIA 4+; URINE EPITHELIAL CELLS RARE (FEW); URINE RBC NONE SEEN (NONE SEEN); URINE WBC NONE SEEN (0-2/hpf)
[2018-03-08] MEDS ORDERED: NITROFURANTOIN MONO 100 MG CAPSULE PO ONE (17:48)
[2018-03-08] MEDS ORDERED: 0.9 % SODIUM CHLORIDE 1,000 ML BAG IV ONE (18:03)
[2018-03-08] MEDS ORDERED: ACETAMINOPHEN 500 MG TABLET PO PRN (18:47)
[2018-03-08] MEDS ORDERED: ALBUTEROL HFA 8 GM INHALER INH PRN (18:47)
[2018-03-08] MEDS: NITROFURANTOIN MONO 100 MG CAPSULE PO SCH (21:15)
[2018-03-08] MEDS: METHYLPREDNISOLONE SOD 40MG/VIAL IVP SCH (21:17)
[2018-03-08] MEDS: DIPHENHYDRAMINE HCL 50 MG/ML VIAL IVP SCH (21:17)
[2018-03-09] MEDS: DIPHENHYDRAMINE HCL 50 MG/ML VIAL IVP SCH ×2 (00:22→06:09)
[2018-03-09] MEDS: METHYLPREDNISOLONE SOD 40MG/VIAL IVP SCH ×2 (02:48→09:55)
--- NOTE | 2018-03-09 05:08 | RADIOLOGY REPORT ---
EXAM: CHEST, SINGLE VIEW HISTORY: DIFFICULTY BREATHING. SKIN RASH. TECHNIQUE: A single portable AP upright view of the chest was performed. Comparison: 10/16/17. FINDINGS: The heart, mediastinum, and pulmonary vasculature are normal. There are no acute infiltrates or effusions. There is very minor atelectasis or scarring at both lung bases. The bones appear intact. IMPRESSION: STABLE CHEST WITH NO ACUTE PROCESS IDENTIFIED. JOB NUMBER: [id number] MTDD
[2018-03-09] MEDS ORDERED: PANTOPRAZOLE SODIUM 40 MG TABLET PO SCH (07:00)
--- NOTE | 2018-03-09 09:25 | Discharge Note ---
VTE H&P Assessment - Risk for VTE Risk for VTE: Yes Risk Level: Moderate Risk Assessment Date: 03/09/18 Risk Assessment Time: 09:18 VTE Orders Placed or Will Be Placed: Yes Discharge Medications - Discharge Medications Prescriptions: Diphenhydramine HCl [Benadryl] 25 mg PO Q6H #30 cap Nitrofurantoin [place] [Macrobid] 100 mg PO BID #14 capsule Prednisone [Prednisone 10Mg] 10 mg PO ASDIR #30 tab Home Medications: Ambulatory Orders Calcium Carbonate [Calcium] 600 mg PO DAILY tab 03/16/15 [Last Taken 1 Day Ago ~01/17/17] Cholecalciferol (Vitamin D3) [Vitamin D3] 5,000 unit PO DAILY 06/23/16 [Last Taken 1 Day Ago ~01/17/17] Albuterol Sulfate [Proair Hfa] 1 - 2 puff INH ASDIR 30 Days #9 09/30/16 [Last Taken 1 Day Ago ~01/17/17] Omeprazole [Prilosec] 20 mg PO DAILY 10/16/17 [Last Taken Unknown] Atorvastatin Calcium 10 mg PO DAILY 03/04/18 [Last Taken Unknown] Saccharomyces Boulardii [Probiotic] 250 mg PO DAILY cap 03/04/18 [Last Taken Unknown] Acetaminophen [Tylenol 500Mg Tab] 500 mg PO Q6H PRN tablet 03/09/18 [Last Taken Unknown] Diphenhydramine HCl [Benadryl] 25 mg PO Q6H #30 cap 03/09/18 [Last Taken Unknown ] Nitrofurantoin [place] [Macrobid] 100 mg PO BID #14 capsule 03/09/18 [Last Taken Unknown] Prednisone [Prednisone 10Mg] 10 mg PO ASDIR #30 tab 03/09/18 [Last Taken Unknown ] Discharge Note - Date Date of Discharge Note: 03/09/18 Disposition: Home, Self-Care Condition: (2) Stable Additional Instructions: follow up with Dr tang on at 9 am March 11 No more Bactrim or sulfa medication Forms: Patient Portal Access
[2018-03-09] MEDS ORDERED: ENOXAPARIN 40 MG/0.4 ML SYR SQ ONE (09:30)
[2018-03-09] MEDS: NITROFURANTOIN MONO 100 MG CAPSULE PO SCH (09:53)
[2018-03-09] MEDS ORDERED: ATORVASTATIN 20 MG TABLET PO SCH (10:00)
--- NOTE | 2018-03-10 08:50 | History and Physical Report ---
DATE OF ADMISSION: 03/08/2018 This is an observation patient. CHIEF COMPLAINT: Allergic reaction to Bactrim. HISTORY OF PRESENT ILLNESS: This 62-year-old female presented to the emergency department with itchy red rash, facial swelling, mild chest pressure, and short of breath. She started Bactrim for urinary tract infection about an hour before these symptoms developed. She presently denies pain, shortness of breath, difficulty swallowing or talking but is itchy all over. She has had Bactrim in the past with no problems. She was evaluated by Dr. Schafer in the emergency department when he admitted her for anaphylactic reaction to Bactrim, chest pain, serial cardiac enzymes. He treated her with Solu-Medrol and Benadryl but no epinephrine was given. Her blood pressure was fine. Pulse ox was good but she was having some chest pressure in the chest which concerned him. Troponin in the emergency department was negative. Her urine in the emergency department showing positive nitrate, 4+ bacteria, rare epithelial cells, no WBCs or RBCs. Started on Macrobid 100 mg b.i.d., IV Solu-Medrol, and IV Benadryl. Admitted to the hospital for observation. PAST MEDICAL HISTORY: She had multiple partial small bowel obstruction and diverticulitis which surgically was corrected and she has been better since that time about a year ago by Dr. Wick. Primary osteoarthritis involving multiple joints, vitamin D deficiency, hypercholesterolemia, hypertension, COPD, osteoporosis. PAST SURGICAL HISTORY: Tonsillectomy and adenoidectomy as a child, bowel resection about 1-2 years ago for diverticulitis, cholecystectomy, fissure repair, and tubal repair due to adhesions many years ago. MEDICATIONS: 1. Atorvastatin 10 mg daily. 2. ProAir 2 puffs q.6 h. p.r.n. 3. Omeprazole 20 mg daily. 4. Calcium with vitamin D 600 mg daily. 5. Vitamin D 5000 units daily. 6. Probiotics 250 mg daily. ALLERGIES: VENOM HONEY BEE, SULFA, BACTRIM. PSYCHOSOCIAL HISTORY: She is a former smoker, quit in 1979. No alcohol or drug use. FAMILY HISTORY: Father had cancer. Father had diabetes and mother had heart disease and hypertension. Father had respiratory disorders. REVIEW OF SYSTEMS: HEENT: No upper respiratory infection symptoms. She did have some chest tightness and redness and rash and itching all over but no problems swallowing with the Bactrim reaction. Cardiovascular: She had tightness in her chest but no pain at this time. Troponins were negative x2 time points. Respiratory: No cough, cold, or congestion. Negative for any daytime sleepiness or irregularities with sleeping, irregular or loud snoring. Gastrointestinal: No nausea, vomiting, diarrhea, black stools. Genitourinary: No dysuria, hematuria, frequency, or burning on urination. Musculoskeletal: No joint or bone abnormalities. Neurological: No CVA, paralysis, or paresthesias. GUNNER'S MATE G: Unremarkable. Endocrine: No diabetes or thyroid disease. Integument: She has a rash all over - see chief complaint. Itching. She did have some tightness in her chest but no wheezing and no hypotension. PHYSICAL EXAMINATION: VITALS: Weight 167 pounds, height 5 feet 4 inches. Temperature 97.7, pulse 71, blood pressure 101/51, respiratory rate 16, pulse ox 95% on room air. When she came into the emergency department, vital signs were temperature 97.7, pulse 75, blood pressure 147/92, respiratory rate 20, pulse ox 98% on room air. HEENT: Pupils are equal, round, and reactive to light and accommodation. Extraocular muscles are intact. Throat is clear. Nose is clear. Tympanic membranes are yuen. NECK: Supple. No jugular venous distention. No hepatojugular reflux. No carotid bruits. Thyroid is smooth. CARDIOVASCULAR: Regular rate and rhythm without murmurs, clicks, rubs, or gallops. RESPIRATORY: Clear to auscultation and percussion. ABDOMEN: Soft, nontender. No hepatosplenomegaly, no masses, no tenderness. Bowel sounds are active. No bruits. EXTREMITIES: No pitting edema. No cyanosis, no clubbing. Full range of motion. Peripheral pulses are good. BREASTS: Exam deferred. RECTAL: Exam deferred. GENITALIA: Deferred. NEUROLOGIC: Cranial nerves II-XII intact. No gross defects. Sensation normal, strength normal. Deep tendon reflexes equal bilaterally with Babinski negative. MENTAL STATUS: Alert and oriented x3. SKIN: Rash that is gone through the night; it disappeared. No problems breathing and no problems with chest pain at this time. IMPRESSION: 1. Anaphylactoid-type reaction with chest discomfort and rash all over the body. 2. Allergic reaction to Bactrim and sulfa. 3. History of hypertension. 4. History of hypercholesterolemia. PLAN: IV Solu-Medrol. IV Benadryl. Observation. MTDD
--- NOTE | 2018-03-10 09:50 | Discharge Summary ---
DATE: 03/09/2018 Observation patient. DISCHARGE DIAGNOSES: 1. Anaphylactic reaction to sulfa. 2. Allergic reaction to Bactrim. 3. Urinary tract infection. ATTENDING PHYSICIAN: Ryan Camarillo DO REASON FOR HOSPITALIZATION: Rash, chest pressure, itching all over, allergic reaction to Bactrim. Dr. Schafer evaluated the patient and was concerned about her chest pressure, put her in for serial cardiac enzymes and serial IV Solu-Medrol and IV Benadryl and further evaluation. SIGNIFICANT FINDINGS: Cardiac enzymes are negative x3. EKGs were negative. Normal sinus rhythm, no acute changes. Chest x-ray, stable chest, no acute process seen. Laboratory, WBC 5200, troponin 3 time points negative at less than 0.010. Urine showing positive nitrite and bacteria 4+. She tolerated the Macrobid that was given to her in the emergency department, 100 mg. THERAPY PROVIDED: She was given IV Solu-Medrol and IV Benadryl. Her rash is totally gone. She felt much better. No chest pressure. She was ready to be discharged upon my evaluation. DISCHARGE INSTRUCTIONS: She is discharged with Macrobid 100 mg b.i.d. for 7 days. Also prednisone taper 40 mg a day for 3 days, 30 mg a day for 3 days, 20 mg a day for 3 days, then 10 mg a day for 3 days. We will see her back in the office in 2 days, 03/11/2018. Benadryl 25 mg q.6 h. and Macrodantin 100 mg b.i.d. for 7 days for urinary tract infection. Follow up with Dr. Camarillo in 2 days. [facility] INSANEJ[facility]
== END 2018-03-09 11:00 | disposition home or self-care (01) ==
LOC: ER 15:57 → MEDSURG 18:29
PROVIDERS: ADMIT Emergency Medicine; ATTEND Emergency Medicine
DX: T78.2XXA Anaphylactic shock, unspecified, initial encounter (principal); R21 Rash and other nonspecific skin eruption; R60.9 Edema, unspecified; R07.9 Chest pain, unspecified; R06.02 Shortness of breath; J44.9 Chronic obstructive pulmonary disease, unspecified; G47.33 Obstructive sleep apnea (adult) (pediatric); M81.0 Age-related osteoporosis without current pathological fracture; Z86.61 Personal history of infections of the central nervous system; Z87.891 Personal history of nicotine dependence
CPT/HCPCS: 99285 ×2; 96374; 96375; 85025; 80053; 81001; 84484 ×2; 71045; 93005 ×2; 93010; G0378 ×2; 99217; J1200; J2920; J2930; J7030

== ENCOUNTER 2018-04-24 18:46 | Emergency (ER) | payer BC ==
[2018-04-24] MEDS ORDERED: HYOSCYAMINE SULFATE ODT 0.125 MG TAB.SUBL SL ONE ×2 (19:01→20:53)
[2018-04-24] MEDS ORDERED: ONDANSETRON HCL IV 4 MG/2 ML VIAL IVP ONE (19:06)
--- NOTE | 2018-04-24 19:08 | Emergency Department Record ---
History of Present Illness - General Chief complaint: Nausea, Vomiting, Diarrhea Stated complaint: DIZZY,DIARRHEA Time Seen by Provider: 04/24/18 18:53 Source: Patient Mode of Arrival: Ambulatory Limitations: No limitations - History of Present Illness Initial comments: 62 yo female presents to ED for evaluation of abdominal cramping, loose stools, and weakness symptoms. Patient reports a history of diverticulitis, however today's symptoms are different than her typical diverticulitis symptoms. Patient denies urinary symptoms, fevers, chills, or low back pain symptoms. 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 MD complaint: Diarrhea Onset/Timin -: Days(s) Description of Vomiting: Watery Associated Abdominal Pain: Yes Location: RUQ, RLQ Radiation: None Severity: Moderate Quality: Cramping Consistency: Intermittent Improves with: None Worsens with: None Associated Symptoms: Denies other symptoms - Related Data Previous Rx's Medication Instructions Recorded Acetaminophen [Tylenol 500Mg Tab] 500 mg PO Q6H PRN tablet 03/09/18 Diphenhydramine HCl [Benadryl] 25 mg PO Q6H #30 cap 03/09/18 Hyoscyamine Sulfate [Levsin-Sl] 0.25 mg SL Q8H PRN #15 tab.subl 04/24/18 Ondansetron [Zofran Odt] 4 mg PO Q6H PRN #15 tab.rapdis 04/24/18 Allergies Allergy/AdvReac Type Severity Reaction Status Date / Time Sulfa (Sulfonamide Allergy Severe rash, Verified 04/24/18 19:03 Antibiotics) chest pains, difficulty breathing venom-honey bee Allergy SWELLING Verified 04/24/18 19:03 (GENERAL) Review of Systems Constitutional: Denies: Chills, Fever, Malaise, Night sweats Eyes: Denies: Eye discharge, Eye pain ENT: Denies: Congestion, Ear pain Respiratory: Denies: Cough, Dyspnea Cardiovascular: Denies: Chest pain, Dyspnea on exertion Endocrine: Denies: Fatigue, Heat or cold intolerance Gastrointestinal: Reports: Abdominal pain, Diarrhea. Denies: Constipation, Nausea, Vomiting Genitourinary: Denies: Incontinence, Retention Musculoskeletal: Denies: Arthralgia, Back pain Skin: Denies: Bruising, Change in color Neurological: Denies: Abnormal gait, Confusion, Headache, Seizure Psychiatric: Denies: Anxiety Hematological/Lymphatic: Denies: Anemia, Blood Clots Past Medical History - SOCIAL HISTORY Smoking Status: Former smoker Alcohol Use Comment: wine Drug Use: None - RESPIRATORY Hx Respiratory Disorders: Yes Hx Asthma: No Hx Bronchitis: No Hx COPD: Yes Hx Dyspnea: No Hx Pneumonia: No Hx Pulmonary Embolism: No Hx Sleep Apnea: Yes (needs to be retested, no machine) Hx Tuberculosis: No - CARDIOVASCULAR Hx Cardio Disorders: No Hx Abnormal EKG: No Hx Cardiac Cath: No Hx Chest Pain: No Hx CHF: No Hx Deep Vein Thrombosis: No Hx Edema: No Hx Heart Attack: No Hx Hypertension: No Hx Hypotension: No Hx Irregular Heartbeat: No Hx Palpitations: No Hx Pacemaker/Defib: No Hx Vascular Disease: No - NEURO Hx Neuro Disorders: Yes Hx Brain Tumor: No Hx CVA: No Hx Dementia: No Hx Dizziness: No Hx Headaches: No Hx Neuropathy: No Hx Parkinson's Disease: No Hx Seizures: No Hx Speech Problem: No Hx TIA: No Comment:: 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 - GI Hx GI Disorders: Yes Hx Abdominal Pain: Yes Hx Celiac Disease: No Hx Crohn's Disease: No Hx Diverticulitis: Yes Hx GI Bleed: No Hx Reflux: Yes Hx Hepatitis/Jaundice: No Hx Hiatal Hernia: No Hx Irritable Bowel: No Hx Liver Disease: No Hx Nausea/Vomiting: Yes Hx Obstructive Bowel: Yes Hx Pancreatitis: No Hx Rectal Bleeding: Yes (from fissure) Hx Ulcer: No Hx Wt Loss/Wt Gain: Yes Comment:: constipation, bowel obstruction - Hx Genitourinary Disorders: Yes Hx Bladder Problem: No Hx Dialysis: No Hx Kidney Stones: No Hx Renal Disease: No Hx UTI: Yes - ENDOCRINE Hx Endocrine Disorders: No Hx Diabetes: No Hx Thyroid Disease: No - MUSCULOSKELETAL Hx Musculoskeletal Disorders: Yes Hx Arthritis: No Hx Back Injury: Yes (x2 herniated disc) Hx Fibromyalgia: No Hx Gout: No Hx Musculoskeletal Disease: Yes (left knee) Hx Osteoporosis: Yes Comment:: cortisone injection for hip pain - PSYCH Hx Psych Problems: No - HEMATOLOGY/ONCOLOGY Hx Hematology/Oncology Disorders: Yes Hx Anemia: No Hx Blood Disorders: No Hx Bruising: No Hx Cancer: No Hx Chemotherapy: No Hx Radiation Therapy: No Hx Clotting Problems: No Hx Sickle Cell Disease: No Hx Unexplained Bleeding: No Hx Blood Transfusions: Yes Hx Blood Transfusion Reaction: No Family Medical History Hx Cancer: Father Hx Diabetes: Father Hx Heart Disease: Mother Hx HTN: Mother Hx Resp Disorders: Father Physical Exam - General General Appearance: Alert, Oriented x3, Cooperative, Mild distress Limitations: No limitations - Head Head exam: Atraumatic, Normocephalic, Normal inspection Head exam detail: negative: Abrasion, Contusion, Oconnor's sign, General tenderness, Hematoma, Laceration - Eye Eye exam: Normal appearance. negative: Conjunctival injection, Periorbital swelling, Periorbital tenderness, Scleral icterus - ENT Ear exam: negative: Auricular hematoma, Auricular trauma Nasal Exam: negative: Active bleeding, Discharge, Dried blood, Foreign body Mouth exam: negative: Drooling, Laceration, Muffled voice, Tongue elevation - Neck Neck exam: Normal inspection. negative: Meningismus, Tenderness - Respiratory Respiratory exam: Normal lung sounds bilaterally. negative: Rales, Respiratory distress, Rhonchi, Stridor - Cardiovascular Cardiovascular Exam: Regular rate, Normal rhythm, Normal heart sounds - GI/Abdominal GI/Abdominal exam: Soft, Tenderness (TTP RLQ on examination, no rebound or guarding present). negative: Rebound, Rigid - Rectal Rectal exam: Deferred - exam: Deferred - Extremities Extremities exam: Normal inspection. negative: Pedal edema, Tenderness - Back Back exam: Denies: CVA tenderness (R), CVA tenderness (L) - Neurological Neurological exam: Alert, Normal gait, Oriented X3 - Psychiatric Psychiatric exam: Normal affect, Normal mood - Skin Skin exam: Normal color. negative: Abrasion Type of lesion: negative: abrasion Course - Reevaluation(s) Reevaluation #1: 04/24/18 20:13 Laboratory studies were reviewed and are grossly unremarkable for an acute process. Patient was updated on all results thus far, has just returned from CT imaging. Patient reports improvement in her symptoms following IVFs, Zofran, and Levsin. Reevaluation #2: 04/24/18 20:14 Reevaluation #3: 04/24/18 20:33 CT Abdomen/Pelvis: Findings c/w gastroenteritis Diverticulosis without diverticulitis Reevaluation #4: 04/24/18 20:50 Patient was updated on her CT imaging result, reports that she continues to improve. Patient appears stable for discharge on Levsin and Zofran as directed with return for any worsening of her symptoms. All questions were answered prior to discharge. Medical Decision Making - Lab Data Result diagrams: 04/24/18 19:08 04/24/18 19:08 Disposition Disposition: Discharge Clinical Impression: Gastroenteritis Disposition: Home, Self-Care Condition: (2) Stable Instructions: Acute Diarrhea (ED) Additional Instructions: Return to ED if your symptoms worsen or if you have any concerns. Levsin and Zofran Follow-up with your family doctor in 3-5 days as directed. Prescriptions: Hyoscyamine Sulfate [Levsin-Sl] 0.25 mg SL Q8H PRN #15 tab.subl PRN Reason: Abdominal Pain Ondansetron [Zofran Odt] 4 mg PO Q6H PRN #15 tab.rapdis PRN Reason: Nausea/Vomiting Forms: Patient Portal Access Time of Disposition: 20:52 Quality - Quality Measures Quality Measures: N/A - Blood Pressure Screening Does Patient Have Any of the Following: No Blood Pressure Classification: Hypertensive Reading Systolic Measurement: 144 Diastolic Measurement: 91 Screening for High Blood Pressure: < First Hypertensive BP, F/U Documented > [ G8950] First Hypertensive Follow-up Interventions: Referral to alternative/primary care provider.
[2018-04-24] MEDS: 0.9 % SODIUM CHLORIDE 1000ML 1,000 ML IV SCH ×2 (19:10→20:21)
[2018-04-24 19:14] LABS: BASO % 0.2 % (0-6); EOS % 1.2 % (0-6); GRAN % 68.6 % (47-80); HEMATOCRIT 45.8 % (35.0-47.0); HEMOGLOBIN 15.6 gm/dl (11.6-16.0); LYMPH % 16.2 % (16-45); MEAN CELL VOLUME 88.4 fl (81-97); MEAN CORPUSCULAR HEMOGLOBIN 30.1 pg (27-33); MEAN CORPUSCULAR HGB CONC 34.1 g/dl (32-36); MEAN PLATELET VOLUME 9.7 fl (7.4-10.4); MONO % 13.8 % (0-9); PLATELET COUNT 328 K/uL (130-400); RED BLOOD COUNT 5.18 M/uL (3.80-5.40); RED CELL DISTRIBUTION WIDTH 13.4 % (11.5-14.5)
[2018-04-24 19:15] LABS: URINE APPEARANCE CLEAR; URINE BILIRUBIN NEGATIVE (NEGATIVE); URINE BLOOD TRACE-I (NEGATIVE); URINE COLOR YELLOW; URINE GLUCOSE (UA) NEGATIVE (NEGATIVE); URINE KETONE NEGATIVE (NEGATIVE); URINE LEUKOCYTE ESTERASE NEGATIVE (NEGATIVE); URINE NITRITE NEGATIVE (NEGATIVE); URINE PROTEIN NEGATIVE (NEGATIVE); URINE UROBILINOGEN 0.2 E.U./dL (0.20 - 1.00)
[2018-04-24 19:23] LABS: URINE EPITHELIAL CELLS NONE SEEN (FEW); URINE WBC 0 - 2 (0-2/hpf)
[2018-04-24 19:24] LABS: BLOOD UREA NITROGEN 10 mg/dL (8-23); CREATININE 0.6 mg/dL (0.5-0.9); EST GLOMERULAR FILTRATION RATE > 60 mL/min; LIPASE 23 U/L (13-60); TOTAL PROTEIN 7.9 g/dL (6.6-8.7)
[2018-04-24 19:26] LABS: GLUCOSE,RANDOM 103 mg/dL (74-109)
[2018-04-24 19:29] LABS: ALB/GLOB RATIO 1.5 (1.1-1.8); ALBUMIN 4.7 g/dL (4.0-5.0); ALKALINE PHOSPHATASE 86 U/L (35-104); ALT/SGPT 36 U/L (<33); AST/SGOT 46 U/L (10.0-35.0)
[2018-04-24] MEDS ORDERED: 0.9 % SODIUM CHLORIDE 1000ML 1,000 ML IV SCH (20:15)
[2018-04-24] MEDS ORDERED: ONDANSETRON 4 MG ODT TABLET SL ONE (20:53)
[2018-04-25 05:18] LABS: URINE RBC NONE SEEN (NONE SEEN)
--- NOTE | 2018-04-28 05:14 | CT SCAN REPORT ---
DATE: 04/24/2018. EXAM: CT OF THE ABDOMEN AND PELVIS WITH CONTRAST. HISTORY: Left lower quadrant abdominal pain with diarrhea. TECHNIQUE: Routine imaging of the abdomen and pelvis after the intravenous administration of contrast. Coronal and sagittal reformations are provided. COMPARISON: 12/19/2016. FINDINGS: The lung bases are clear. The liver is unremarkable. The gallbladder has been resected. Mild intrahepatic bile duct dilatation likely related to prior cholecystectomy. The common bile duct is not overly dilated. The appearance is similar to prior examination. The pancreas appears normal. The spleen is normal in size. The adrenal glands are normal. The kidneys appear normal. No bowel dilatation. Distal colonic anastomosis. There is colonic diverticulosis without evidence for diverticulitis. There is fluid throughout the colon which can be seen with a gastroenteritis. No pelvic masses. The bladder is unremarkable. No retroperitoneal or mesenteric adenopathy. The aorta is normal in caliber. There is a small, fat-containing ventral wall hernia above the umbilicus. No destructive osseous lesion is identified. 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 No free fluid or free air. IMPRESSION: FINDINGS WHICH CAN BE SEEN WITH A GASTROENTERITIS. COLONIC DIVERTICULOSIS WITHOUT EVIDENCE FOR DIVERTICULITIS. JOB NUMBER: [id number] [facility]
== END 2018-04-24 21:11 | disposition home or self-care (01) ==
LOC: ER 18:46
DX: K52.9 Noninfective gastroenteritis and colitis, unspecified (principal); K57.90 Diverticulosis of intestine, part unspecified, without perforation or abscess without bleeding; R11.2 Nausea with vomiting, unspecified; J44.9 Chronic obstructive pulmonary disease, unspecified; Z87.891 Personal history of nicotine dependence
CPT/HCPCS: 99284 ×2; 96374; 83690; 85025; 80053; 81001; 74177; Q9967; J1980; J2405; J7030